=== PATIENT | female | born 1990 | race Caucasian/White ===

== ENCOUNTER → 2016-10-09 21:40 | Observation (INO) ==
[2016-10-09 17:07] LABS: Basophils % 0.3 %; Eosinophils # 0.1 K/mcL (0.0-0.6); Eosinophils % 0.9 %; Hematocrit 38.8 % (35.3-44.9); Hemoglobin 12.9 g/dL (11.5-15.4); Immature Granulocytes % 0.8 % (0-4); Lymphocytes # 1.7 K/mcL (0.6-4.6); Lymphocytes % 12.7 %; Mean Corpuscular HGB Conc 33.2 g/dL (31.6-35.5); Mean Corpuscular Hemoglobin 28.5 pg (28.0-33.3); Mean Corpuscular Volume 85.8 fL (83.0-100.0); Mean Platelet Volume 11.4 fL (9.4-12.4); Monocytes # 1.1 K/mcL (0.0-1.3); Monocytes % 8.1 %; Neutrophils # 10.1 K/mcL (1.6-8.9); Platelet Count 187 K/mcL (140-400); Red Blood Count 4.52 M/mcL (3.82-4.97); Red Cell Distribution Width 12.6 % (11.5-14.5); Segmented Neutrophils % 77.2 %
[2016-10-09 17:09] LABS: Bilirubin,Urine Negative (Negative); Blood,Urine Negative (Negative); Clarity,Urine Cloudy (Clear); Color,Urine Yellow (Yellow); Glucose,Urine (UA) Normal (Normal); Ketones,Urine 40 mg/dL (Negative); Leukocyte Esterase,Urine Moderate (Negative); Nitrite,Urine Negative (Negative); Protein,Urine Negative (Neg-Trace); Specific Gravity,Urine 1.014 (1.010-1.025); Urobilinogen,Urine Normal (Normal)
[2016-10-09 17:10] LABS: Bacteria,Urine Few per hpf (None-Few); Hyaline Casts,Urine None Seen per lpf (None-Few); RBC,Urine 0-3 per hpf (0-3); Squamous Epithelial Cell,Urine Many per lpf (None-Few); WBC,Urine 15-30 per hpf (0-3)
[2016-10-09 17:37] LABS: Alanine Aminotransferase 8 Units/L (0-55); Aspartate Amino Transferase 20 Units/L (5-34); BUN/Creatinine Ratio 9 (6-26); Blood Urea Nitrogen 6 mg/dL (7-20); Lactate Dehydrogenase 274 Units/L (159-327); Uric Acid 3.6 mg/dL (2.6-6.0); eGFR For African Americans > 60 (> 60); eGFR For Non-African Americans > 60 (> 60)
[2016-10-09 17:47] LABS: Protein/Creatinine Ratio,Urine 0.14 mg/mg (0-0.20)
--- NOTE | 2016-10-09 18:20 | OB/GYN History & Physical ---
Date of Encounter: 10/09/16 Time of Encounter: 18:17 Assessment and Plan (1) 32 weeks gestation of Current visit: Yes Status: Acute Pt presents at 32 weeks EGA. No evidence of preeclampsia on labs and bp's are good. Suspect pt is having Migraine. Will give IV hydration and Demerol and Phenergan. Will send home on Zofran once symptoms have improved. (2) Migraine Current visit: Yes Status: Acute Qualifiers: Migraine type: without aura Intractability: not intractable Qualified Code(s): G43.001 - Migraine without aura, not intractable, with status migrainosus (3) contractions Current visit: Yes Status: Acute Will give IVF. Pt having some uc's on monitor which she isn't feeling. Cvx was reassuring by u/s in Dr. Joseph office last week. History of Present Illness Chief complaint: Headache and intractable nausea and vomiting HPI: Ms. Broussard is a 25 year old female female at 32 weeks EGA presents with c/o severe culp that awoke her during her sleep. She also has had progressively worsening nausea and vomiting is No oral liquid or solid intake down today. She does have remote history of migraines early in for which she took she has not been able to keep this down today. She does report some scotomata. She does have a remote history of chronic hypertension and she was followed for -induced hypertension with last . This she has had recently elevated blood pressures and turned in a 24-hour urine yesterday. She has a long history of mild right upper quadrant pain off and on and had this during last . She has no edema. She reports good movement and denies regular contractions and has no bleeding or leakage of fluid. Past Med Surg Social Fam HX - Past Medical History Source: patient Medical history: no medical history Psychiatric history: anxiety, depression - Social History Smoking Status: Never smoker Smokeless Tobacco Status: No Alcohol use: unknown Drug use: none Obstetrical History - Pregnancies : 2 Medications and Allergies Wellbutrin 150 mg PO DAILY 02/09/16 [History] Fioricet 1 tab PO Q6H 10/09/16 [History] Allergies No Known Allergies Allergy (Verified 02/09/16 14:44) Review of System OB All systems PM: reviewed and no additional remarkable complaints except as stated Exam - Constitutional Constitutional: well developed, moderate distress - HEENT HEENT: EOMI, PERRL - Neck Neck exam: full ROM - Lungs Respiratory exam: CTAB - Cardiovascular Cardiovascular exam: RRR - Abdomen Abdomen: Present: gravid - Extremities Extremities exam: full ROM Deep Tendon Reflex Grade: 2+ Normal - Vagina Vagina: Present: normal moisture - Uterus Uterus exam: Present: normal size Results Result Diagrams: 10/09/16 16:55 10/09/16 16:55 Abnormal lab results WBC 13.0 K/mcL (4.3-11.1) H 10/09/16 16:55 Neutrophils # 10.1 K/mcL (1.6-8.9) H 10/09/16 16:55 BUN 6 mg/dL (7-20) L 10/09/16 16:55 Urine Clarity Cloudy (Clear) A 10/09/16 16:55 Urine Ketones 40 mg/dL (Negative) H 10/09/16 16:55 Ur Leukocyte Esterase Moderate (Negative) H 10/09/16 16:55 Urine Microscopic WBC 15-30 per hpf (0-3) H 10/09/16 16:55 Ur Squamous Epith Cells Many per lpf (None-Few) H 10/09/16 16:55 Ur Culture Indicated? YES (NO) A 10/09/16 16:55 All other labs normal. - VTE Reasons for not Prescribing Prophylaxis: Treatment not Indicated - Low risk for VTE
--- NOTE | 2016-10-09 18:41 | Discharge Summary ---
Outpatient Proc Discharge Plan - Plan Prescriptions: Ondansetron ODT [Zofran ODT] 4 mg SL Q4HR PRN #30 tab.rapdis PRN Reason: Nausea Home Medications: Wellbutrin 150 mg PO DAILY 02/09/16 [History] Fioricet 1 tab PO Q6H 10/09/16 [History] Ondansetron ODT [Zofran ODT] 4 mg SL Q4HR PRN #30 tab.rapdis 10/09/16 [Rx]
[~2016-10-09 21:40] MED LIST: *HR* Meperidine 25 MG/ML SYRINGE IVP PRN; *HR* Promethazine 25 MG/ML VIAL IVP ONE; Ondansetron 4 MG/2 ML VIAL IVP PRN; Ringers Solution, Lactated 1,000 ML IVC SCH
== END | disposition home or self-care (01) ==
LOC: 1NENULAB
PROVIDERS: ADMIT Obstetrics & Gynecology; ATTEND Obstetrics & Gynecology

== ENCOUNTER → 2016-11-08 21:19 | Observation (INO) ==
--- NOTE | 2016-11-08 20:02 | OB/GYN Progress Note ---
Date of Encounter: 11/08/16 Time of Encounter: 19:57 - Assessment and Plan (1) 35 weeks gestation of Current Visit: Yes Status: Acute Subjective - Subjective Principal diagnosis: contractions every 1-2 minutes Interval history: 25 year old female, 35 weeks and 4 days , [id number] whose OBGYN is Dr. 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 Patient denies SROM. She states that she has had some elevated blood pressures btu is not currently on medications for this . Patient states that she maintain proper hydration and denies any UTI symptoms at this time. Patient states that she is unaware of her GBS status as she most recently had it evaluated but does not have the results back yet. She states that she is experiencing nausea and vomitted x1 about after being triaged at L&D. Her only other medication she is on is Wellbutrin. Her last check was last week and at that time she was 1cm dilated and 80% effaced. Antepartum ROS: movement normal, contractions, no loss of fluid, no vaginal bleeding Objective - Exam FHR: auscultation normal Abdomen: Present: normal appearance, soft, gravid Uterus: Present: normal, firm Cervical dilation: 2cm Cervix effacement: 80% Comments: checked was performed by nursing staff - Allied health notes Allied health notes reviewed: nursing
[2016-11-08 20:11] VITALS: BP 154/94
[2016-11-08 20:43] LABS: Bilirubin,Urine Negative (Negative); Blood,Urine Negative (Negative); Clarity,Urine Clear (Clear); Color,Urine Yellow (Yellow); Glucose,Urine (UA) Normal (Normal); Ketones,Urine Trace mg/dL (Negative); Leukocyte Esterase,Urine Moderate (Negative); Nitrite,Urine Negative (Negative); PH,Urine 6.5 pH Units (5.0-8.0); Protein,Urine Negative (Neg-Trace); Specific Gravity,Urine 1.006 (1.010-1.025); Urobilinogen,Urine Normal (Normal)
[2016-11-08 20:45] LABS: Bacteria,Urine None Seen per hpf (None-Few); Hyaline Casts,Urine None Seen per lpf (None-Few); RBC,Urine 0-3 per hpf (0-3); Squamous Epithelial Cell,Urine Many per lpf (None-Few)
== END | disposition home or self-care (01) ==
LOC: 1NENULAB

== ENCOUNTER 2017-03-10 07:58 | Inpatient (IN) ==
[2017-03-10] MEDS ORDERED: 0.9 % Sodium Chloride 1,000 ML IVC ONE ×2 (08:28→10:11)
--- NOTE | 2017-03-10 09:03 | Emergency Department Note ---
Disposition Clinical Impression: Skin lesion Sepsis Qualifiers: Sepsis type: sepsis due to unspecified organism Qualified Code(s): A41.9 - Sepsis, unspecified organism Disposition: Admitted As Inpatient Condition: Good General Adult HPI - General Chief complaint: ED Fever Stated complaint: fever, neck pain Time Seen by Provider: 03/10/17 08:06 Source: patient Limitations: no limitations Nursing Notes Reviewed: Yes Vital Signs Reviewed: Yes - History of Present Illness HPI Narrative: 3 months . Patient is here for the evaluation of multiple complaints. Patient states that she has these lumps in her arms and her groin that decreased her overall use of the extremities secondary to pain. This this started out on Wednesday with small lesion that has significantly increased in size. Patient has now developed fevers as well as myalgias. Patient has also had a rule canker sores in her mouth. Patient has not been on any new medications. No history of IV drug use. No history of immunosuppression. Patient has been outside and this had some mosquito bites but denies any tick bites or other rashes. Pain Scale: 3 - Related Data Home Medications Medication Instructions Recorded Confirmed BuPROPion XL (24 HR) [Wellbutrin 150 mg PO DAILY 02/09/16 03/10/17 XL] Rizatriptan Benzoate [Maxalt] 10 mg PO DAILY PRN 10/09/16 03/10/17 Ethinyl Estradiol/Drospirenone 1 tab PO DAILY 03/10/17 03/10/17 [Debbie 28 Tablet] Topiramate [Topamax] 50 mg PO DAILY 03/10/17 03/10/17 Allergies Allergy/AdvReac Type Severity Reaction Status Date / Time No Known Allergies Allergy Verified 03/10/17 08:05 Review of Systems: CONSTITUTIONAL: Fever, chills, weakness, fatigue HEENT: Eyes: No visual changes. Ears, Nose, Throat: No hearing loss, difficulty talking or unable to swallow. SKIN: Multiple skin lesions in the axilla and groin CARDIOVASCULAR: No chest pain, chest pressure or chest discomfort. No palpitations or edema. RESPIRATORY: No shortness of breath, cough or sputum. GASTROINTESTINAL: No anorexia, nausea, vomiting or diarrhea. No abdominal pain or blood. GENITOURINARY: No burning on urination or hematuria. NEUROLOGICAL: No headache, dizziness, syncope, paralysis, ataxia, numbness or tingling in the extremities. No change in bowel or bladder control. MUSCULOSKELETAL: No muscle pain, back pain, joint pain or stiffness. Past Medical History - Past Medical History Medical history: Reports: migraine Surgical history: Reports: no surgical history Psychiatric history: Reports: anxiety, depression - Social History Smoking Status: Never smoker Smokeless Tobacco Status: No Alcohol use: Reports: unknown Drug use: Reports: none Physical Exam General appearance: NAD, conversant Eyes: anicteric sclerae, moist conjunctivae; PERRL HENT: Atraumatic; oropharynx clear with moist mucous membranes and no mucosal ulcerations Neck: Normal inspection; Trachea midline; FROM, supple Lungs: CTA, with normal respiratory effort and no intercostal retractions CV: RRR, no MRGs Abdomen: Soft, non-tender; no rebound or gaurding Extremities: No peripheral edema or extremity lymphadenopathy Skin: Multiple lesions in the axilla and groin area concerning for possible abscesses. The right left axilla have several2 cm x 1 cm leions that are mildly fluctuant in nature. The pelvic external exam shows 2 follicular lesions with one that is crusting. Psych: Appropriate mood and affect Neuro: alert and oriented to person, place and time - General Limitations: no limitations General appearance: alert, in no apparent distress Course - Reevaluation(s) Reevaluation #1: Patient continues to be tachycardic after 1 L of fluids. Patient will receive more fluids as well as vancomycin. Patient did give proximally 3 months ago and falls within a 90 day timeframe. Concern for even hospital acquired MRSA. At this point the patient has known lesions, elevated white count, and unresolved tachycardia. The patient will need further evaluation and monitoring in hospital. - Consultations Consultation #1: Discussed with Dr. Dixon. Pt accepted. Vital Signs Temperature 98.2 F 03/10/17 08:01 Pulse Rate 115 03/10/17 08:01 Respiratory Rate 18 03/10/17 08:01 Blood Pressure 138/85 03/10/17 08:01 O2 Sat by Pulse Oximetry 99 03/10/17 08:01 Temperature 101.2 F H 03/10/17 13:12 Pulse Rate 113 03/10/17 12:50 Respiratory Rate 16 03/10/17 12:58 Blood Pressure 115/70 03/10/17 12:58 O2 Sat by Pulse Oximetry 98 03/10/17 12:50 Oxygen Delivery Oxygen Delivery Room Air Medical Decision Making - Medical Records Medical records reviewed: Yes I reviewed the patient's medical records. - Lab Data Lab results reviewed: Yes I reviewed the patient's lab results. Result diagrams: 03/10/17 08:40 03/10/17 08:40 Lab Results 03/10/17 03/10/17 03/10/17 Range/Units 08:40 08:40 10:38 WBC 13.8 H (4.3-11.1) K/mcL RBC 4.57 (3.82-4.97) M/mcL Hgb 12.8 (11.5-15.4) g/dL Hct 38.7 (35.3-44.9) % MCV 84.7 (83.0-100.0) fL MCH 28.0 (28.0-33.3) pg MCHC 33.1 (31.6-35.5) g/dL RDW 13.7 (11.5-14.5) % Plt Count 196 (140-400) K/mcL MPV 11.0 (9.4-12.4) fL Immature Gran % 0.6 (0-4) % Seg Neutrophils % 87.9 % Lymphocytes % 4.3 % Monocytes % 7.0 % Eosinophils % 0.1 % Basophils % 0.1 % Neutrophils # 12.1 H (1.6-8.9) K/mcL Lymphocytes # 0.6 (0.6-4.6) K/mcL Monocytes # 1.0 (0.0-1.3) K/mcL Eosinophils # 0.0 (0.0-0.6) K/mcL Basophils # 0.0 (0.0-0.2) K/mcL PT (9.4-12.1) Seconds INR APTT (26.0-36.0) Seconds Sodium 139 (136-145) mEq/L Potassium 3.2 L (3.5-4.5) mEq/L Chloride 109 (98-109) mEq/L Carbon Dioxide 21 (19-29) mEq/L BUN 8 (7-20) mg/dL Creatinine 0.81 (0.57-1.11) mg/dL Est GFR ( Amer) > 60 (> 60) Est GFR (Non-Af Amer) > 60 (> 60) BUN/Creatinine Ratio 10 (6-26) Glucose 106 H (70-99) mg/dL Calculated Osmolality 287 (280-300) Lactic Acid 0.7 (0.5-2.2) mmol/L Calcium 9.4 (8.6-10.8) mg/dL 03/10/17 Range/Units 11:51 WBC (4.3-11.1) K/mcL RBC (3.82-4.97) M/mcL Hgb (11.5-15.4) g/dL Hct (35.3-44.9) % MCV (83.0-100.0) fL MCH (28.0-33.3) pg MCHC (31.6-35.5) g/dL RDW (11.5-14.5) % Plt Count (140-400) K/mcL MPV (9.4-12.4) fL Immature Gran % (0-4) % Seg Neutrophils % % Lymphocytes % % Monocytes % % Eosinophils % % Basophils % % Neutrophils # (1.6-8.9) K/mcL Lymphocytes # (0.6-4.6) K/mcL Monocytes # (0.0-1.3) K/mcL Eosinophils # (0.0-0.6) K/mcL Basophils # (0.0-0.2) K/mcL PT 12.4 H (9.4-12.1) Seconds INR 1.1 APTT 25.1 L (26.0-36.0) Seconds Sodium (136-145) mEq/L Potassium (3.5-4.5) mEq/L Chloride (98-109) mEq/L Carbon Dioxide (19-29) mEq/L BUN (7-20) mg/dL Creatinine (0.57-1.11) mg/dL Est GFR ( Amer) (> 60) Est GFR (Non-Af Amer) (> 60) BUN/Creatinine Ratio (6-26) Glucose (70-99) mg/dL Calculated Osmolality (280-300) Lactic Acid (0.5-2.2) mmol/L Calcium (8.6-10.8) mg/dL Attestation Statement - Attestation Attestation: I examined this patient and my medical decision-making was reviewed with the Resident Physician. I agree with the documented findings, disposition and treatment plan as described except to the extent set forth below. Patient to the emergency department with a chief complaint of bumps in her axilla. Onset several days ago. Fever up to 102.7. Response to Tylenol but then comes back. Patient thinks maybe related to a razor. On exam she is in no distress. She has multiple small abscesses and axilla. They are tender. Multiple small follicles in her groin as well. One small area on the inferior labia majora that is drained. One small abscess above it that is firm. Plan. Patient with tachycardia and elevated white blood cell count. Subjective fever. She meets sepsis criteria. She started on broad-spectrum antibiotic. 30 minutes of critical care exclusive of separately billable procedures.
[2017-03-10 09:16] LABS: Basophils % 0.1 %; Eosinophils % 0.1 %; Hematocrit 38.7 % (35.3-44.9); Hemoglobin 12.8 g/dL (11.5-15.4); Immature Granulocytes % 0.6 % (0-4); Lymphocytes # 0.6 K/mcL (0.6-4.6); Lymphocytes % 4.3 %; Mean Corpuscular HGB Conc 33.1 g/dL (31.6-35.5); Mean Corpuscular Volume 84.7 fL (83.0-100.0); Neutrophils # 12.1 K/mcL (1.6-8.9); Platelet Count 196 K/mcL (140-400); Red Blood Count 4.57 M/mcL (3.82-4.97); Red Cell Distribution Width 13.7 % (11.5-14.5); Segmented Neutrophils % 87.9 %
[2017-03-10 09:28] LABS: BUN/Creatinine Ratio 10 (6-26); Blood Urea Nitrogen 8 mg/dL (7-20); Calcium 9.4 mg/dL (8.6-10.8); Carbon Dioxide 21 mEq/L (19-29); Chloride 109 mEq/L (98-109); Glucose 106 mg/dL (70-99); Osmolality,Calculated 287 (280-300); Potassium 3.2 mEq/L (3.5-4.5); Sodium 139 mEq/L (136-145); eGFR For African Americans > 60 (> 60); eGFR For Non-African Americans > 60 (> 60)
[2017-03-10] MEDS ORDERED: Vancomycin 1,000 MG in D5% in Water 250 ML IVPB ONE (10:11)
[2017-03-10] MEDS ORDERED: Naloxone 0.4 MG/ML INJ IVP PRN (11:36)
[2017-03-10] MEDS ORDERED: Ondansetron 4 MG/2 ML VIAL IVP PRN (11:36)
[2017-03-10] MEDS ORDERED: Ibuprofen 600 MG TABLET PO PRN (11:55)
[2017-03-10] MEDS ORDERED: 0.9 % Sodium Chloride 1,000 ML IVC SCH (12:00)
[2017-03-10] MEDS ORDERED: Ketorolac 30 MG/ML VIAL IVP ONE (12:02)
--- NOTE | 2017-03-10 12:06 | Internal Med History&Physical ---
<Lance Bradford - Last Filed: 03/10/17 13:34> Date of Encounter: 03/10/17 Time of Encounter: 10:30 Assessment and Plan (1) Sepsis Current visit: Yes Status: Acute Patient presents to the ED meeting sepsis criteria based on WBC of 13.8, HR of 124, and temperature of 101.2. IV vancomycin ordered and started in the ED along with two boluses of IV fluids. IV vancomycin to be continued with the addition of IV Zosyn for infection coverage. Blood cultures x2 ordered, urine culture ordered, and multiple wound cultures ordered. Stat and timed lactic acids ordered as well as INR and APTT. Infectious Disease consult ordered and discussed with Munira. IV fluids to be continued. Follow-up labs ordered. Patient placed on continuous cardiac telemetry due to current tachycardia. Patient to be monitored closely for increasing signs of infection. Qualifiers: Sepsis type: sepsis due to unspecified organism Qualified Code(s): A41.9 - Sepsis, unspecified organism (2) Groin cyst Current visit: Yes Status: Acute Patient presents with sores in the groin area as well as axilla that she states began as one sore in the left axilla on 03/08/17 and became multiple sores in the left and right axilla, back of the neck, as well as the groin area. Sores range in size from the size of a pencil eraser to the size of a quarter and are raised, edematous, and erythematous. CT scan of the axilla sores did not show fluid to culture, however patient states that one of the groin sores burst open and is now scabbed. Wound cultures of the neck and groin ordered. Infectious Disease consult ordered and discussed with Munira. (3) Mouth sores Current visit: Yes Status: Acute Patient presents with several sores in the mouth with white centers and red edges on the inside left lower lip, under the right back tongue, as well as in the back of the throat. Patient reports the sores are painful and make swallowing difficult. Wound culture ordered of lip sore. Infectious disease consult ordered and discussed with Munira. (4) Fever Current visit: Yes Status: Acute Patient presents with reported fever at home of 102.7F prior to coming to ED. Patient's temperature in ED was 99.2 orally. Patient felt warmer during examination so rectal temperature was obtained which was 101.2. Tylenol 650 mg Q6 PRN ordered to e alternated with Motrin 600 mg TID for fever control. Will continue to monitor patient's vital signs. Qualifiers: Fever type: due to other condition Qualified Code(s): R50.81 - Fever presenting with conditions classified elsewhere (5) Nausea Current visit: Yes Status: Acute Patient reports acute nausea with her current symptoms but denies vomiting. IV Zofran ordered PRN. IVP Protonix 40 mg daily ordered. (6) Migraine Current visit: Yes Status: Chronic Patient presents with a history of migraine headaches. Will continue patient's Maxalt. Qualifiers: Migraine type: without aura Intractability: not intractable Qualified Code(s): G43.009 - Migraine without aura, not intractable, without status migrainosus (7) DVT prophylaxis Current visit: Yes Status: Acute Patient to be placed on DVT prophylaxis due to admission protocol and current sepsis status. Heparin 5,000 units SQ Q8 ordered. Internal Medicine - H&P: HPI Chief complaint: Fever, Sores under axilla/groin/mouth Admitted From: Emergency Dept Plans for Post Hospital Care: Home History of present illness: Mrs. Broussard is a 26 year old female who presents from the ED with chief complaint of fever since Wednesday night (03/08/17) and painful sores that began in the left axilla area and increased to multiple sores in the left and right axilla as well as the groin. Patient also reports sores inside her mouth in the lower lip, under the right back of her tongue, and her throat which she states makes swallowing extremely difficult. Patient reports nausea, chills, and fatigue as well. She denies any use of new medications, IV drug use, or history of immunosuppression. She also denies any chest pain, SOB, cough, sputum production, vomiting, diarrhea, constipation, headache, pre-syncope or syncope. Patient is 3 months post-. She also denies any recent travel outside the country or tick bites. Patient is at high risk as she currently meets sepsis criteria based on her current WBC of 13.8, HR of 124, and temperature of 101.2 rectally. Patient to be placed as inpatient status with sepsis protocol being followed: continuation of IV fluids, IV vancomycin and IV Zosyn, stat and timed lactic acids, stat INR and APTT, blood cultures x2, wound cultures (from mouth, neck, and groin), urine culture, and alternating Tylenol and Motrin for fever control. Patient to be monitored closely for increasing signs of infection through follow-up labs. Time spent with patient > 40 minutes. Past Med Surg Social Fam HX - Past Medical History Source: patient Medical history: migraine Psychiatric history: anxiety, depression - Past Surgical History Surgical History: no surgical history - Social History Smoking Status: Never smoker Smokeless Tobacco Status: No Alcohol use: unknown Drug use: none Occupational status: employed Current living situation: Home, With Family Activity Level: Independent ambulation Recent Out of Country Travel Within the Last 8 Weeks: No Exposure or Possible Exposure to Illness During Travel: No - Family History Mother Race: Family Member Ethnicity: Non- Living Status: Still Living Hx Family Cancer: Yes (Colon, uterine, melanoma) Father Race: Family Member Ethnicity: Non- Living Status: Still Living Hx Family Cardiac Disorders: Yes (HD) Brother Race: Family Member Ethnicity: Non- Living Status: Still Living Hx Family Medical Disorders: No Internal Medicine - H&P: Meds BuPROPion XL (24 HR) [Wellbutrin XL] 150 mg PO DAILY 02/09/16 [History] Rizatriptan Benzoate [Maxalt] 10 mg PO DAILY PRN 10/09/16 [History] Ethinyl Estradiol/Drospirenone [Debbie 28 Tablet] 1 tab PO DAILY 03/10/17 [History] Topiramate [Topamax] 50 mg PO DAILY 03/10/17 [History] Allergies No Known Allergies Allergy (Verified 03/10/17 08:05) All Systems PM: A 10-system review of systems was performed and is negative for pertinent findings except as documented above in the HPI. - Constitutional Constitutional: as per HPI, chills, fatigue, fever(s), weakness - EENT Eyes: no change in vision, no discharge, no pain, no photophobia Ears: no ear discharge, no ear pain, no tinnitus Nose, mouth and throat: as per HPI, mouth lesions, sore throat, no dysphagia, no nasal discharge, no neck pain - Breasts Breasts: as per HPI - Cardiovascular Cardiovascular ROS IM: as per HPI, other (Tachycardia) - Respiratory Respiratory: no cough, no dyspnea, no wheezing, no excessive phlegm production - Gastrointestinal Gastrointestinal: as per HPI, nausea, no abdominal pain, no diarrhea, no hematemesis, no hematochezia, no melena, no vomiting - Genitourinary Genitourinary: as per HPI, other (Sores around labia and suprapubic area) Menstruation: as per HPI - Musculoskeletal Musculoskeletal ROS IM: as per HPI, myalgias - Integumentary Integumentary IM: as per HPI, sores (Multiple raised sores under bilateral axillary area and groin area) - Neurological Neurological ROS: no confusion, no convulsions, no focal weakness, no numbness, no tingling, no tremor(s) - Psychiatric Psychiatric: as per HPI - Endocrine Endocrine IM: as per HPI - Hematologic/Lymphatic Hematologic/Lymphatic: no easy bruising - Allergic/Immunologic Allergic/Immunologic: as per HPI - Constitutional Vitals: Temp Pulse Resp BP Pulse Ox 99.2 F 110 16 116/80 98 03/10/17 11:11 03/10/17 10:00 03/10/17 10:00 03/10/17 10:00 03/10/17 10:00 General appearance: Present: cooperative, mild distress, A&O X 3, pleasant, answers questions appropriately - Head Head exam: Present: atraumatic, normocephalic - Eye Eye exam: Present: PERRL, conjuntiva pink, sclera anicteric Pupils: Present: PERRL - ENT ENT exam: Present: normal external ear exam Additional comments: Patient has sores present in the left lower inside lip, right side underneath the tongue at the back, roof of mouth, and in the back of the throat. - Neck Neck exam general surgery: Present: lymphadenopathy, supple, trachea midline - Respiratory Respiratory exam: Present: CTAB. Absent: accessory muscle use, rales, rhonchi, wheezes - Cardiovascular Cardiovascular exam: Present: RRR, +S1, +S2. Absent: diastolic murmur, gallop, rubs, systolic murmur - GI/Abdominal GI/Abdominal exam: Present: normal bowel sounds, soft, no peritoneal signs. Absent: distended, tenderness - Rectal Rectal exam: Present: deferred - External exam: Present: lesions (Around genital area) - Extremities Exam Extremities exam: Present: warm, radial pulses palpable and symetrical. Absent : calf tenderness, cyanotic, pedal edema Additional comments: Patient has multiple raised sores bilaterally in the axillary area that are edematous, erythematous, and painful. - Back Exam Back exam: Present: normal inspection - Neurological Exam Neurological exam: Present: CN II-XII intact, oriented X3, no focal deficits. Absent: pronater drift, facial droop, speech deficit - Psychiatric Psychiatric exam: Present: anxious - Skin Skin exam: Present: dry, intact Internal Med - H&P Results - Labs CBC & Chem 7: 03/10/17 08:40 03/10/17 08:40 Labs: Short CBC 03/10/17 Range/Units 08:40 WBC 13.8 H (4.3-11.1) K/mcL Hgb 12.8 (11.5-15.4) g/dL Hct 38.7 (35.3-44.9) % Plt Count 196 (140-400) K/mcL Neutrophils # 12.1 H (1.6-8.9) K/mcL BMP 03/10/17 08:40 Sodium 139 Potassium 3.2 L Chloride 109 Carbon Dioxide 21 BUN 8 Creatinine 0.81 Glucose 106 H Calcium 9.4 - EKG Data EKG shows normal: sinus rhythm Rate: tachycardia - EKG Data Prior EKG available for review: yes When compared to previous EKG: there are significant changes EKG comments: 03/10/17 12:26 EKG dated 11/28/16 shows sinus arrhythmia and normal ECG. EKG dated 03/10/17 shows sinus tachycardia with ST deviation and moderate T- wave abnormality (consider anterolateral ischemia). <Edy Dixon - Last Filed: 03/10/17 19:41> Date of Encounter: 03/10/17 Internal Medicine - H&P: HPI History of present illness: Ms. Broussard is a 26 year old female All Systems PM: A 10-system review of systems was performed and is negative for pertinent findings except as documented above in the HPI. - Constitutional Vitals: Temp Pulse Resp BP Pulse Ox 99.1 F 109 16 123/79 100 03/10/17 16:17 03/10/17 16:17 03/10/17 16:17 03/10/17 16:17 03/10/17 16:17 Internal Med - H&P Results - Labs CBC & Chem 7: 03/10/17 08:40 03/10/17 08:40 Labs: Urine 03/10/17 Range/Units 15:00 Urine Color Dark Yellow (Yellow) Urine Clarity Cloudy A (Clear) Urine pH 6.0 (5.0-8.0) pH Units Ur Specific [place] > 1.030 H (1.010-1.025) Urine Protein 30 H (Neg-Trace) mg/dL Urine Glucose (UA) Normal (Normal) mg/dL - Attending Attestation I have seen and examined pt. I discussed with COMPRESSOR HOUSE OPERATOR regarding the management plan. I agree with the documentation.
[2017-03-10 12:10] LABS: INR 1.1; Prothrombin Time 12.4 Seconds (9.4-12.1)
[2017-03-10 12:13] LABS: Activated Partial Thrombo Time 25.1 Seconds (26.0-36.0)
[2017-03-10] MEDS ORDERED: (Rizatriptan Benzoate [Maxalt] 10 MG) PO PRN (12:31)
[2017-03-10] MEDS: Pantoprazole 40 MG VIAL IVP SCH (13:55)
[2017-03-10 15:19] LABS: Bilirubin,Urine Small (Negative); Blood,Urine Negative (Negative); Clarity,Urine Cloudy (Clear); Color,Urine Dark Yellow (Yellow); Glucose,Urine (UA) Normal (Normal); Ketones,Urine 80 mg/dL (Negative); Leukocyte Esterase,Urine Small (Negative); Nitrite,Urine Negative (Negative); Protein,Urine 30 mg/dL (Neg-Trace); Specific Gravity,Urine > 1.030 (1.010-1.025); Urobilinogen,Urine Normal (Normal)
[2017-03-10 15:21] LABS: Bacteria,Urine None Seen per hpf (None-Few); Hyaline Casts,Urine Few per lpf (None-Few); Squamous Epithelial Cell,Urine Many per lpf (None-Few); WBC,Urine 15-30 per hpf (0-3)
--- NOTE | 2017-03-10 15:40 | Infectious Disease Consult ---
Date of Encounter: 03/10/17 Time of Encounter: 15:33 Assessment and Plan (1) Sepsis Status: Acute Assessment and plan: Patient meets sepsis criteria with fever, tachycardia and leukocytosis Etiology is unclear at this time. Patient with Axillary lymphadenopathy, oral ulcerations, joint pain and fever. Differential would include infectious causes such as viral ( HIV, parvo, Coxsackie, etc. ), Bacterial, or possibly non infectious ( Bechets, autoimmune ). If work up is negative my even consider lymphoproliferative disorders. Patient is currently hemodynamically stable. Lactic acid is 0.6. UA pending but denies lower urinary tract symptoms. Recommendations: Continue Vancomycin and Zosyn. We will reassess in the AM and may consider discontinuing if cultures are negative. We will follow up with blood and wound cultures. We will check for viral infections, RPR, and inflammatory markers. We will consult Dermatolgy as well to evaluate the patient. Additionally may eventually need skin biopsy. Continue to monitor for drug titers. continue to monitor renal function. Thank you for the consultation and the opportunity to participate in this patience care. Qualifiers: Sepsis type: sepsis due to unspecified organism Qualified Code(s): A41.9 - Sepsis, unspecified organism (2) Axillary lymphadenopathy Status: Acute Assessment and plan: Etiology unclear at this time. We will get a CT of the chest with contrast to evaluate for possible underlying abscess and to see if there is any intrathoracic lymphadenopathy as well. (3) Ulceration, oral mucosa Status: Acute Assessment and plan: as stated above. (4) History of recent childbirth Status: Acute Assessment and plan: patient had at [facility] 3 months ago. Denies any complication during that hospitalization. She denies currently breast feeding. Infectious Disease HPI - Data of Consult Patient: new to practice Consult date: 03/10/17 Requesting Physician: Mj Hanna MD Primary Care Provider: Dinorah Mesa - Consult Narrative Reason for consult: Sepsis, Axillary Lymphadenopathy, oral ulcers. History of present illness: Ms. Broussard is a 26 year old female who was admitted to [facility] on 03/10/17 for Sepsis, bilateral axillary lymphadenopathy. Infectious disease is consulted on 03/10/17 for Sepsis, Axillary Lymphadenopathy , oral and genital lesions. Ms. Broussard is a 26 y.o. female past medical history anxiety, depression, and migrines, who recently had a Spontaneous vaginal delivery at [facility] 3 months ago. This was her second living child. She is currently not breast feeding. She denies any complications with the delivery.She has not had any medical procedures or hospitalizations since that time. Since admission She has met SIRS criteria of Fever with Tmax of 101.2 rectal, tachycardia, and leukocytosis. She was started on Vancomycin and Zosyn and has been given 2Liters of Normal saline. Blood and wound cultures were sent. Herpes culutures are to be collected from oral and genital lesions and are awaiting tubes from lab per staff appraiser. She has been hemodynamically stable since admission. Today Ms. Broussard states that she began to have symptoms are Wednesday when she noted a painful bump under her left axilla. She later developed more and also in the right axilla as well. She states she also had a lesion on her Labia that ruptured on its own and was bloody. She admits to fevers as high as 102.7 at home, chills, rigors and diaphoresis.She also complains of painful oral lesions. She states she has had them in the past but not this many before. She also complains of "bumps" on the right side of her neck. She complains of pain in her ankles knees and hips. She attributes this to standing at work. She states that she did shave her axilla and groin prior to her symptoms but dose not think this is related because she used a brand new razor and did not cut herself. She has a three year old and a 3 month old son. Both of which have recently had upper respiratory symptoms. She states that her mother in law recently returned from a trip to [place] but did not know which country. She denies any cough, wheeze, dyspnea, hemoptysis, rhinnorhea, sinus pressure, Dysuria, diarrhea. She has no further complaints or concerns at this time. CC: Mj Hanna MD Past Med Surg Social Fam HX - Past Medical History Medical history: migraine Psychiatric history: anxiety, depression - Past Surgical History Surgical History: no surgical history, other (bilateral tympanostomy as a child) - Social History Smoking Status: Never smoker Smokeless Tobacco Status: No Alcohol use: unknown Drug use: none - Family History Mother Race: Family Member Ethnicity: Non- Living Status: Still Living Hx Family Cardiac Disorders: Yes Hx Family Respiratory Disorders: No Hx Family Cancer: Yes (Colon, uterine, melanoma) Hx Family GI Disorders: No Hx Family Endocrine Disorder: No Hx Family Neuromuscular Disorders: No Hx Family Neurologic Disorders: No Hx Family HEENT Disorders: No Hx Family Autoimmune Disorders: No Father Race: Family Member Ethnicity: Non- Living Status: Still Living Hx Family Cardiac Disorders: Yes (HD) Brother Race: Family Member Ethnicity: Non- Living Status: Still Living Hx Family Medical Disorders: No Infectious Disease-CN:Meds BuPROPion XL (24 HR) [Wellbutrin XL] 150 mg PO DAILY 02/09/16 [History] Rizatriptan Benzoate [Maxalt] 10 mg PO DAILY PRN 10/09/16 [History] Ethinyl Estradiol/Drospirenone [Debbie 28 Tablet] 1 tab PO DAILY 03/10/17 [History] Topiramate [Topamax] 50 mg PO DAILY 03/10/17 [History] Allergies No Known Allergies Allergy (Verified 03/10/17 08:05) Review of systems: Constitutional: Admits to fevers, chills, malaise, rigors. Denies any unintentional weight loss. HEENT: She denies headache but does state she has a history of migraines. She denies any recent visual changes, she denies any painful irritations of the eye or redness of the eye. She denies rhinorrhea, sinus pressure, change in hearing. She does admit painful oral ulcers. Denies any neck masses. Heart: She denies any chest pain, palpitations, syncopal be, presyncope. Lungs: She denies any dyspnea, cough, wheeze, hemoptysis. GI: She denies any nausea, vomiting, diarrhea, constipation, abdominal pain. : She denies any dysuria, hematuria, change in frequency of urination, vaginal discharge. Musculoskeletal: She does admit to a new aches and pains in her bilateral ankles hips and knees. She denies any erythema or swelling in his joints. Heme: She does admit to bilateral axillary lymphadenopathy. Denies any easy bleeding or bruising. Endocrine: She denies any polyuria or polydipsia. Integument: As per history of present illness. Travel: She is in no travel outside of the state in the last 6 months. No recent foreign travel as well. However her [id number]-ant did just recently returned from [place] it is unknown what country she visited at this time. Animal contacts: She does have a dog that lives indoors with her. She denies any recent scratches or bites. Sick contacts: Her 2 sons have had upper respiratory symptoms. Her mother also recently had bronchitis. She also works at a halfway with the [employer] but does not have any close contact with them. 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 She has never had any exposures during her occupation. Diet: No recent changes in diet. No ingestion of raw or undercooked food. Insect exposure: No recent tick or mosquito bites that she is aware of. sexual history: She states she has been in a monogomous relationship with her boyfriend of 6 years. She has not been sexually active since the of her child 3 months ago. Exam - Constitutional Vitals: Temp Pulse Resp BP Pulse Ox 100.1 F H 110 16 119/77 99 03/10/17 13:35 03/10/17 13:35 03/10/17 13:35 03/10/17 13:35 03/10/17 13:35 Exam: General: This is a very pleasant well-developed well-nourished 18-year-old female who is lying in bed and appears to be comfortable and in no acute distress at this time. HEENT: The head is normocephalic and atraumatic. Normal external appearance of the ears nose and eyes. She does wear glasses. Dentition is intact. The mucous membranes are moist. She does have several ulcerations underneath the tongue on the buccal surface and underneath and the lower lip. Does not have any ulcerations at the back of the throat. The posterior pharynx is pink without cobblestoning or exudate. Uvula is midline. There is no cervical submandibular or supraclavicular lymphadenopathy that is palpable on my exam. She does have some lesions on the skin on the right side of the neck appear to be small abscesses. The neck is supple without mass or thyromegaly. The trachea is midline. Heart: Mildly tachycardic with regular rhythm. She does have a very mild almost imperceptible systolic murmur that is a 1 out of 6 that is heard best at the right upper sternal border. No JVD. Normal capillary refill. Lungs: Normal effort of breathing clear to auscultation bilaterally. Line abdomen: The abdomen is soft, nondistended, nontender to palpation. Bowel sounds are positive in all quadrants. No tenderness to palpation. Musculoskeletal: Grossly normal for age no gross form is noted. No swelling erythema or tenderness of the ankles or knees bilaterally. Extremities: There is no clubbing, cyanosis or edema. Integument: She does have some erythematous raised areas in the axilla bilaterally. Appears to be possibly lymphadenopathy. It is painful to palpation. She does have some small areas of the right-sided neck appear to be very tiny abscesses. Additionally she has one small lesion on the right posterior labia that is approximately 3 mm in diameter. She also has an area of erythema that is approximately 8 mm in diameter this round palpable feels indurated as well possibly early erythema nodosum. Specifically I did not see any embolic or immunologic phenomena such as splinter hemorrhages, also nose, Janeway lesions. Psych: Patient is a orientated, normal affect, cooperates fully with both history and physical. Infectious Disease CN: Results - Labs CBC & Chem 7: 03/11/17 04:47 03/11/17 04:47 Serology: Serology 03/10/17 03/10/17 Range/Units 15:00 15:00 Urine Color Dark Yellow (Yellow) Urine Clarity Cloudy A (Clear) Urine pH 6.0 (5.0-8.0) pH Units Ur Specific [place] > 1.030 H (1.010-1.025) Urine Protein 30 H (Neg-Trace) mg/dL Urine Glucose (UA) Normal (Normal) mg/dL Urine Ketones 80 H (Negative) mg/dL Urine Blood Negative (Negative) Urine Nitrite Negative (Negative) Urine Bilirubin Small H (Negative) Urine Urobilinogen Normal (Normal) mg/dL Ur Leukocyte Esterase Small H (Negative) Urine Microscopic RBC 5-15 H (0-3) per hpf Urine Microscopic WBC 15-30 H (0-3) per hpf Ur Squamous Epith Cells Many H (None-Few) per lpf Urine Bacteria None Seen (None-Few) per hpf Hyaline Casts Few (None-Few) per lpf Ur Culture Indicated? YES A (NO) Urine Test Negative (Negative) Consult Discharge Plan - Plan Referrals: Dinorah Mesa MD [Primary Care Provider] - 03/22/17 10:15 am - Attending Attestation I examined this patient and my medical decision-making was reviewed with the Resident Physician. I agree with the documented findings, disposition and treatment plan as described except to the extent set forth below. Patient is a 26 year old woman with past medical history mentioned below came in with sepsis. She had a lump in the left axilla 5 days prior that was painful and red. She then had more lesions on the side of the neck and another lesion on the labia that bleed spontaneously. Patient also had lesions in the mouth that are painful. Patient started having fevers on Wednesday and was having chills. Patient has 2 children 2 years old and 3 months old both with URI symptoms recently. Since admission, patient has had persistent fever, tachycardia and presenting WBC 13.9 with neutrophilic predominance. Wound cultures were obtained and HSV PCR and patient was started on empiric vancomycin and zosyn. At this time, pts lesions appear interesting. It seems to be viral exanthema vs autoimmune vs other. await labs to finalize will continue vancomycin since I think she has cellulitis/folliculitis at this point will continue to follow
[2017-03-10] MEDS: *HR* Heparin 5,000 UNIT/ML VIAL SQ SCH (16:00)
[2017-03-10] MEDS: *HR* HYDROcodone/Acet 5/325 mg TABLET PO PRN (16:03)
[2017-03-10] MEDS: Piperacillin/Tazobactam 3.375 GM in D5% in Water (Mini-Bag+) 100 ML IVPB SCH (16:04)
--- NOTE | 2017-03-10 19:32 | Dermatology Consult Note ---
Date of Encounter: 03/15/17 Time of Encounter: 16:25 History of Present Illness Reason for Consult: rash History of Present Illness: 26 y/o WF w/ hx of migraines and anxiety/depression and is also 3 months post c/o fever, joint aches and pains and mouth ulcers and sore lumps in b/l axilla. She did shave b/f this all started 3 days ago. Symptoms have progressively worsened over the last 3 days. She met SIRS criteria and was given VAnco in ER. She is now admitted for full evaluation and feels tired and w/ headache. He children recently had URI and no hx of foreign travel and currently not sexually active in her monogamous relationship Review of Systems General/Constitutional: Patient has fevers and chills but no weight loss Hematologic: Patient denies new or enlarging lumps or bumps except lumps in axilla . Skin: Patient denies new or changing moles, or rash other than what is mentioned above. Past Med Surg Social Fam HX - Past Medical History Medical history: migraine Psychiatric history: anxiety, depression - Past Surgical History Surgical History: no surgical history, other (bilateral tympanostomy as a child) - Social History Smoking Status: Never smoker Smokeless Tobacco Status: No Alcohol use: unknown Drug use: none - Family History Mother Race: Family Member Ethnicity: Non- Living Status: Still Living Hx Family Cardiac Disorders: Yes Hx Family Respiratory Disorders: No Hx Family Cancer: Yes (Colon, uterine, melanoma) Hx Family GI Disorders: No Hx Family Endocrine Disorder: No Hx Family Neuromuscular Disorders: No Hx Family Neurologic Disorders: No Hx Family HEENT Disorders: No Hx Family Autoimmune Disorders: No Father Race: Family Member Ethnicity: Non- Living Status: Still Living Hx Family Cardiac Disorders: Yes (HD) Brother Race: Family Member Ethnicity: Non- Living Status: Still Living Hx Family Medical Disorders: No Medications and Allergies BuPROPion XL (24 HR) [Wellbutrin Xl] 150 mg PO DAILY 02/09/16 [History] Rizatriptan Benzoate [Maxalt] 10 mg PO DAILY PRN 10/09/16 [History] Ethinyl Estradiol/Drospirenone [Debbie 28 Tablet] 1 tab PO DAILY 03/10/17 [History] Topiramate [Topamax] 50 mg PO DAILY 03/10/17 [History] Acetaminophen [Tylenol] 650 mg PO Q6HR PRN tab 03/15/17 [Rx] cephALEXin [Keflex] 500 mg PO QID #20 capsule 03/15/17 [Rx] Allergies No Known Allergies Allergy (Verified 03/10/17 08:05) Examination Vital Signs: Temp Pulse Resp BP Pulse Ox 99.1 F 109 16 123/79 100 03/10/17 16:17 03/10/17 16:17 03/10/17 16:17 03/10/17 16:17 03/10/17 16:17 General Examination: The patient appears alert, oriented X3, in no acute distress, healthy-appearing , normal mood. A detailed skin examination of sites including: scalp, head, neck , face, conjunctive, lids, lips, back, chest/breast/axilla, abdomen, bilateral upper extremities including hands/digits/fingernails, bilateral lower extremities including feet/digits/toenails, genital/groin/buttock, lymph nodes, was completed and found to be normal except: folliculocentric pustules on neck and scalp, punched out shallow ulcerations on inner lip, under tongue, and buccal mucosa and palate, folliculocentric pustules on mons pubis. pt w/ erythematous inflammed nodules, some w/ faint pustules on b/l axilla and right labia majora with nodule w/ crust/eshar. palms and soles clear. conjunctiva clear - Assessment and Plan (1) Folliculitis Status: Acute pt has constellation of interesting findings: fever, arthralgia, folliculitis, mouth ulcerations, and abscesses in axilla. I favor infectious etiology... could have staph infection and apthous ulcers. However, need to consider more rare causes of oral ulceration-- thus recommended more extensive viral titers as well. I did bacterial cultures of axilla and mons pubis and viral culture of lip. Jill is also in the running and would explain a lot of these findings, but I feel best to r/o infectious etiologies b/f strongly considering this very rare possibility. If you would like Derm to do a biopsy (presuming cultures and titers negative, we would be happy to perform these.). I am out of the office until Wednesday, but Dr. Amin will be in clinic and Dr. Nagy on Wednesday. Sarcoidosis would also be a rare possibility (2) Ulceration, oral mucosa Status: Acute (3) Abscess Status: Acute Procedure: Dermatology Date of procedure: 03/10/17 Procedure: no procedure done Consult Discharge Plan - Plan Additional Instructions: Continue taking Keflex for 5 days Scheduled follow-up appointment with PCP, utility bill complaints investigator, [employer]ER, and nursery teacher. Referrals: Laxmi Ryan MD [Non-Partnered Physician] - (Patient has a follow up already made and will be seeing Dr. Ryan next week. Thank you) Dinorah Mesa MD [Primary Care Provider] - 03/22/17 10:15 am Melanie Weller MD [Partnered Physician] - (Dr. Weller has made patient aware that the office will call her tomorrow and let her know the date and time of the hospital f/u. Thank you.) Alphonso Mitchell DO [Partnered Physician] - 03/26/17 3:00 pm Prescriptions: cephALEXin [Keflex] 500 mg PO QID #20 capsule
[2017-03-10] MEDS: *HR* Morphine 2 MG/ML SYRINGE IVP PRN (20:35)
[2017-03-10] MEDS: Acetaminophen 325 MG TABLET PO PRN (20:36)
[2017-03-10] MEDS ORDERED: Vancomycin 1,000 MG in D5% in Water 250 ML IVPB SCH (21:00)
[2017-03-10 21:09] LABS: Basophils % 0.2 %; Eosinophils % 0.1 %; Hematocrit 32.3 % (35.3-44.9); Immature Granulocytes % 0.5 % (0-4); Lymphocytes # 0.7 K/mcL (0.6-4.6); Lymphocytes % 5.1 %; Mean Corpuscular HGB Conc 34.7 g/dL (31.6-35.5); Mean Corpuscular Hemoglobin 28.7 pg (28.0-33.3); Mean Corpuscular Volume 82.8 fL (83.0-100.0); Monocytes # 1.1 K/mcL (0.0-1.3); Monocytes % 8.7 %; Neutrophils # 11.2 K/mcL (1.6-8.9); Platelet Count 148 K/mcL (140-400); Red Cell Distribution Width 13.6 % (11.5-14.5); Segmented Neutrophils % 85.4 %
[2017-03-10 21:11] LABS: Hemoglobin 11.2 g/dL (11.5-15.4)
[2017-03-10] MEDS: Magic Mouthwash 10 ML UD Cup PO SCH (22:00)
[2017-03-11] MEDS: 0.9 % Sodium Chloride 1,000 ML IVC SCH ×2 (00:14→14:09)
[2017-03-11] MEDS: Piperacillin/Tazobactam 3.375 GM in D5% in Water (Mini-Bag+) 100 ML IVPB SCH ×3 (00:16→17:31)
[2017-03-11] MEDS: Ketorolac 15 MG/ML VIAL IVP SCH ×4 (00:17→17:32)
[2017-03-11] MEDS: Vancomycin 1,000 MG in D5% in Water 250 ML IVPB SCH ×2 (00:22→11:09)
[2017-03-11] MEDS: *HR* Heparin 5,000 UNIT/ML VIAL SQ SCH ×3 (00:22→17:31)
[2017-03-11] MEDS: *HR* Morphine 2 MG/ML SYRINGE IVP PRN ×2 (04:16→21:32)
[2017-03-11] MEDS: Acetaminophen 325 MG TABLET PO PRN ×2 (04:17→11:10)
[2017-03-11 05:47] LABS: BUN/Creatinine Ratio 6 (6-26); Blood Urea Nitrogen 4 mg/dL (7-20); Calcium 8.4 mg/dL (8.6-10.8); Carbon Dioxide 20 mEq/L (19-29); Chloride 112 mEq/L (98-109); Glucose 112 mg/dL (70-99); Magnesium 1.7 mg/dL (1.6-2.6); Osmolality,Calculated 286 (280-300); Potassium 3.3 mEq/L (3.5-4.5); Sodium 139 mEq/L (136-145); eGFR For African Americans > 60 (> 60); eGFR For Non-African Americans > 60 (> 60)
[2017-03-11 05:56] LABS: Basophils % 0.1 %; Eosinophils % 0.2 %; Hematocrit 33.2 % (35.3-44.9); Immature Granulocytes % 0.5 % (0-4); Lymphocytes # 0.7 K/mcL (0.6-4.6); Mean Corpuscular HGB Conc 33.1 g/dL (31.6-35.5); Mean Corpuscular Hemoglobin 28.4 pg (28.0-33.3); Mean Corpuscular Volume 85.6 fL (83.0-100.0); Mean Platelet Volume 11.7 fL (9.4-12.4); Monocytes # 1.3 K/mcL (0.0-1.3); Monocytes % 9.7 %; Platelet Count 160 K/mcL (140-400); Red Blood Count 3.88 M/mcL (3.82-4.97); Red Cell Distribution Width 13.8 % (11.5-14.5); Segmented Neutrophils % 84.5 %
--- NOTE | 2017-03-11 08:24 | Internal Med Progress Note ---
<Ten Martinez - Last Filed: 03/11/17 16:12> Date of Encounter: 03/11/17 Time of Encounter: 08:23 - Assessment and plan (1) Sepsis Current Visit: Yes Status: Acute Assessment and plan: Tmax 102.9, continue Tylenol WBC 13.0, was 13.8 yesterday. ESR of 54 and CRP of [address] CT revealed bilateral axillary skin thickening suggestive of cellulitis Wound cultures negative, Blood cultures pending Qualifiers: Sepsis type: sepsis due to unspecified organism Qualified Code(s): A41.9 - Sepsis, unspecified organism (2) Folliculitis Current Visit: Yes Status: Acute Assessment and plan: Dermatology and IV following ID recommends continuing Vancomycin. Can switch to PO bactrim upon discharge. Possible sarcoidosis, COLETTE Level pending Parvo, EBV, CMV, coxscakie are pending Consider punch biopsy (3) Aphthous ulcer of mouth Current Visit: Yes Status: Acute Assessment and plan: Continue to monitor. Oral culture results are negative (4) DVT prophylaxis Current Visit: Yes Status: Acute Assessment and plan: Heparin Patient seen and examined, plan and discussed with and agreed upon with Dr. Hassan - Subjective Interval history: Patient rested comfortably in bed. Patient reports decreased appetite due to oral ulcers. She reports fever and diffuse pain. - Constitutional Vitals: Temp Pulse Resp BP Pulse Ox 100.2 F H 94 16 104/64 98 03/11/17 07:00 03/11/17 07:00 03/11/17 07:00 03/11/17 07:00 03/11/17 07:00 General appearance: Present: cooperative, mild distress, A&O X 3, pleasant, answers questions appropriately - Head Head exam: Present: atraumatic, normocephalic - Eye Eye exam: Present: PERRL, conjuntiva pink, sclera anicteric Pupils: Present: PERRL - ENT ENT exam: Present: mucous membranes moist Additional comments: Multiple small 5 mm aphthous ulcers in oral mucosa, no lymphadenopathy - Neck Neck exam general surgery: Present: supple, trachea midline. Absent: lymphadenopathy - Respiratory Respiratory exam: Present: CTAB. Absent: accessory muscle use, rales, rhonchi, wheezes - Cardiovascular Cardiovascular exam: Present: +S1, +S2, tachycardia. Absent: diastolic murmur, gallop, RRR, rubs, systolic murmur - GI/Abdominal GI/Abdominal exam: Present: normal bowel sounds, soft, no peritoneal signs. Absent: distended, tenderness - Extremities Exam Extremities exam: Present: warm, radial pulses palpable and symetrical. Absent : calf tenderness, cyanotic, pedal edema - Neurological Exam Neurological exam: Present: CN II-XII intact, oriented X3, no focal deficits. Absent: pronater drift, facial droop, speech deficit - Skin Skin exam: Present: dry, erythema, intact, rash Additional comments: Small 2 x 3 cm erythematous nodule in axilla. 1cm erythematous patches bilateral anterior shins, palms and soles are clear Internal Medicine: Result - Labs CBC & Chem 7: 03/11/17 04:47 03/11/17 04:47 Labs: Short CBC 03/10/17 03/11/17 Range/Units 20:54 04:47 WBC 13.2 H 13.0 H (4.3-11.1) K/mcL Hgb 11.2 L D 11.0 L (11.5-15.4) g/dL Hct 32.3 L 33.2 L (35.3-44.9) % Plt Count 148 160 (140-400) K/mcL Neutrophils # 11.2 H 11.0 H (1.6-8.9) K/mcL BMP 03/11/17 04:47 Sodium 139 Potassium 3.3 L Chloride 112 H Carbon Dioxide 20 BUN 4 L Creatinine 0.71 Glucose 112 H Calcium 8.4 L Urine 03/10/17 Range/Units 15:00 Urine Color Dark Yellow (Yellow) Urine Clarity Cloudy A (Clear) Urine pH 6.0 (5.0-8.0) pH Units Ur Specific [place] > 1.030 H (1.010-1.025) Urine Protein 30 H (Neg-Trace) mg/dL Urine Glucose (UA) Normal (Normal) mg/dL - ABG Interpretation ABG results: PT/INR, D-dimer PT 12.4 Seconds (9.4-12.1) H 03/10/17 11:51 - Impressions Impressions Chest CT 03/10/17 16:37 IMPRESSION: 1. Symmetric bilateral axillary skin thickening and mild subcutaneous inflammatory stranding could be due to cellulitis ; correlate with direct inspection. D/ / Umair Camara MD / Umair Camara MD Interpreting Provider: Umair Camara MD Consult Discharge Plan - Plan Referrals: Dinorah Mesa MD [Primary Care Provider] - 03/22/17 10:15 am <Zachary Hassan P - Last Filed: 03/11/17 18:19> Date of Encounter: 03/11/17 - Constitutional Vitals: Temp Pulse Resp BP Pulse Ox 99.3 F 91 14 114/74 95 03/11/17 15:22 03/11/17 15:22 03/11/17 15:22 03/11/17 15:22 03/11/17 15:22 Internal Medicine: Result - Labs CBC & Chem 7: 03/11/17 04:47 03/11/17 04:47 Labs: Short CBC 03/10/17 03/11/17 Range/Units 20:54 04:47 WBC 13.2 H 13.0 H (4.3-11.1) K/mcL Hgb 11.2 L D 11.0 L (11.5-15.4) g/dL Hct 32.3 L 33.2 L (35.3-44.9) % Plt Count 148 160 (140-400) K/mcL Neutrophils # 11.2 H 11.0 H (1.6-8.9) K/mcL BMP 03/11/17 04:47 Sodium 139 Potassium 3.3 L Chloride 112 H Carbon Dioxide 20 BUN 4 L Creatinine 0.71 Glucose 112 H Calcium 8.4 L - ABG Interpretation ABG results: PT/INR, D-dimer PT 12.4 Seconds (9.4-12.1) H 03/10/17 11:51 - Impressions Impressions Chest CT 03/10/17 16:37 IMPRESSION: 1. Symmetric bilateral axillary skin thickening and mild subcutaneous inflammatory stranding could be due to cellulitis ; correlate with direct inspection. D/ / Umair Camara MD / Umair Camara MD Interpreting Provider: Umair Camraa MD - Attending Attestation I examined this patient and my medical decision-making was reviewed with the Resident Physician. I agree with the documented findings, disposition and treatment plan as described except to the extent set forth below. dermatology input appreciated and skin biopsy results awaited ID input appreciated. please see detaill ID review. additional information as follows. 26/F Mother was diagnosed with colon cancer at age 48 and has breast cancer along with skin neoplasia. patient was in [facility] recently and claims that had some rash after that. plan will keep close eye
[2017-03-11] MEDS: Magic Mouthwash 10 ML UD Cup PO SCH ×3 (08:27→17:31)
--- NOTE | 2017-03-11 09:01 | Electrocardiograph Report ---
[place] [facility] Test Date: 2017-03-10 Pat Name: Fifi Broussard Department: 105 Room: 3A25 Gender: F [employer] Mechanic: : 1990 Requested By: Yuri Pickering Order Number: [id number] Reading MD: Anup Monreal MD Measurements Intervals [place] Rate: 106 P: 46 WA: 170 QRS: 23 QRSD: 84 T: 4 QT: 315 QTc: 377 Interpretive Statements SINUS TACHYCARDIA ST DEVIATION AND MODERATE T-WAVE ABNORMALITY, CONSIDER ANTEROLATERAL ISCHEMIA [- 0.1+ mV T WAVE IN V3-V6] Electronically Signed On 03-11-2017 8:59:56 EDT by Anup Monreal MD
--- NOTE | 2017-03-11 10:14 | Infectious Disease Progress No ---
Date of Encounter: 03/11/17 Time of Encounter: 10:10 - Assessment and Plan (1) Sepsis Current Visit: Yes Status: Acute Patient still meets SIRS criteria with Tachycardia, fever and leukocytosis. Tmax 102.9 WBC are still elevated at 13.0 this is down from 13.8 yesterday. Wound cultures from the mouth and groin collected on 03/10/17 show no growth to date. I discussed blood cultures with micro. Preliminarily no growth at this time from blood cultures collected on 03/10/17. inflammatory markers are elevated with ESR of 54 and CRP of 170. RF was negative. SOLEDAD pending HIV was negative. Other viral tests are pending. UA shows small LE,WBC, and RBC. However she denies Lower urinary tact symptoms. CT of the chest with contrast reveals: "Symmetric bilateral axillary skin thickening and mild subcutaneous inflammatory stranding could be due to cellulitis ; correlate with direct inspection." Exam from yesterday is essentially unchanged other than new skin lesion on the right rinaldi. Lesion on left rinaldi is more erythematous and pronounced today. Appears to be possibly erythema nodosum. Etiology is still unclear at this time. CT findings would suggest possible cellulitis of axillae rather than Lymphadenopathy. However she dose not appear to be improving on antibiotics thus far. With oral ulceration, what appears to be erythema nodosum, arthralgias, and elevated inflammatory markers would consider possibly an inflammatory condition. Viral causes are also being considered and viral tests for Parvo, EBV, CMV, coxscakie are pending. May also consider more than one underlying processes to explain her symptoms. Recommendations: Discontinue Zosyn. Continue Vancomycin. Can Switch to PO BActrim on discharge. We will follow up with cultures and viral panels. Continue to monitor for drug toxicities. continue to monitor renal function. Qualifiers: Sepsis type: sepsis due to unspecified organism Qualified Code(s): A41.9 - Sepsis, unspecified organism (2) Ulceration, oral mucosa Current Visit: Yes Status: Acute possibly viral? we will follow up with viral panels. patient still symptomatic. Symptoms are being managed by primary team. (3) Rash Current Visit: Yes Status: Acute patient now has bilateral symmetrical erythematous skin lesions of the anterior shins bilaterally. Possible erythema nodosum. PAtient radhaos has multiple raises erythematous nodular skin lesions of the bilateral axillae. Measuring 2-[address] scan would suggest possible cellulitis. Recommend continuing Vancomycin. Can switch to PO bactrim upon discharge. (4) History of recent childbirth Current Visit: Yes Status: Acute patient had 3 months ago at [place] without complications. - Subjective Interval history: No major events overnight. This AM patient states she is feeling about the same. She states she was unable to eat breakfast this morning due to the pain in her mouth. She also has continued pain in her ankles and knees. She states that this is associated with her fever. She states now she is also hurting all over. She states her axillae are still painful and has not had any improvement from yesterdaty. She states that she also began her period this AM. She denies any adverse reaction to the antibiotics. Specifically she denies pruritis, and diarrhea. She has no further complaints or concerns this AM. Infect Dis PN-Objective Data - Labs CBC & Chem 7: 03/11/17 04:47 03/11/17 04:47 Labs: Laboratory Results - last 24 hr 03/10/17 03/10/17 03/10/17 13:00 15:00 15:00 WBC RBC Hgb Hct MCV MCH MCHC RDW Plt Count MPV Immature Gran % Seg Neutrophils % Lymphocytes % Monocytes % Eosinophils % Basophils % Neutrophils # Lymphocytes # Monocytes # Eosinophils # Basophils # ESR Sodium Potassium Chloride Carbon Dioxide BUN Creatinine Est GFR ( Amer) Est GFR (Non-Af Amer) BUN/Creatinine Ratio Glucose Calculated Osmolality Lactic Acid 0.6 Calcium Phosphorus Magnesium C-Reactive Protein B-Natriuretic Peptide Urine Color Dark Yellow Urine Clarity Cloudy A Urine pH 6.0 Ur Specific [place] > 1.030 H Urine Protein 30 H Urine Glucose (UA) Normal Urine Ketones 80 H Urine Blood Negative Urine Nitrite Negative Urine Bilirubin Small H Urine Urobilinogen Normal Ur Leukocyte Esterase Small H Urine Microscopic RBC 5-15 H Urine Microscopic WBC 15-30 H Ur Squamous Epith Cells Many H Urine Bacteria None Seen Hyaline Casts Few Ur Culture Indicated? YES A Urine Test Negative Rheumatoid Factor HIV Ag/Ab Combo Qual Infectious [place] Assay 03/10/17 03/10/17 03/10/17 16:37 16:37 16:37 WBC RBC Hgb Hct MCV MCH MCHC RDW Plt Count MPV Immature Gran % Seg Neutrophils % Lymphocytes % Monocytes % Eosinophils % Basophils % Neutrophils # Lymphocytes # Monocytes # Eosinophils # Basophils # ESR 54 H Sodium Potassium Chloride Carbon Dioxide BUN Creatinine Est GFR ( Amer) Est GFR (Non-Af Amer) BUN/Creatinine Ratio Glucose Calculated Osmolality Lactic Acid Calcium Phosphorus Magnesium C-Reactive Protein 170 H B-Natriuretic Peptide Urine Color Urine Clarity Urine pH Ur Specific [place] Urine Protein Urine Glucose (UA) Urine Ketones Urine Blood Urine Nitrite Urine Bilirubin Urine Urobilinogen Ur Leukocyte Esterase Urine Microscopic RBC Urine Microscopic WBC Ur Squamous Epith Cells Urine Bacteria Hyaline Casts Ur Culture Indicated? Urine Test Rheumatoid Factor < 15 HIV Ag/Ab Combo Qual Infectious [place] Assay 03/10/17 03/10/17 03/10/17 16:37 16:39 20:54 WBC 13.2 H RBC 3.90 Hgb 11.2 L D Hct 32.3 L MCV 82.8 L MCH 28.7 MCHC 34.7 RDW 13.6 Plt Count 148 MPV 11.0 Immature Gran % 0.5 Seg Neutrophils % 85.4 Lymphocytes % 5.1 Monocytes % 8.7 Eosinophils % 0.1 Basophils % 0.2 Neutrophils # 11.2 H Lymphocytes # 0.7 Monocytes # 1.1 Eosinophils # 0.0 Basophils # 0.0 ESR Sodium Potassium Chloride Carbon Dioxide BUN Creatinine Est GFR ( Amer) Est GFR (Non-Af Amer) BUN/Creatinine Ratio Glucose Calculated Osmolality Lactic Acid Calcium Phosphorus Magnesium C-Reactive Protein B-Natriuretic Peptide Urine Color Urine Clarity Urine pH Ur Specific [place] Urine Protein Urine Glucose (UA) Urine Ketones Urine Blood Urine Nitrite Urine Bilirubin Urine Urobilinogen Ur Leukocyte Esterase Urine Microscopic RBC Urine Microscopic WBC Ur Squamous Epith Cells Urine Bacteria Hyaline Casts Ur Culture Indicated? Urine Test Rheumatoid Factor HIV Ag/Ab Combo Qual Nonreactive Infectious [place] Assay Negative 03/11/17 03/11/17 03/11/17 04:47 04:47 04:47 WBC 13.0 H RBC 3.88 Hgb 11.0 L Hct 33.2 L MCV 85.6 MCH 28.4 MCHC 33.1 RDW 13.8 Plt Count 160 MPV 11.7 Immature Gran % 0.5 Seg Neutrophils % 84.5 Lymphocytes % 5.0 Monocytes % 9.7 Eosinophils % 0.2 Basophils % 0.1 Neutrophils # 11.0 H Lymphocytes # 0.7 Monocytes # 1.3 Eosinophils # 0.0 Basophils # 0.0 ESR Sodium 139 Potassium 3.3 L Chloride 112 H Carbon Dioxide 20 BUN 4 L Creatinine 0.71 Est GFR ( Amer) > 60 Est GFR (Non-Af Amer) > 60 BUN/Creatinine Ratio 6 Glucose 112 H Calculated Osmolality 286 Lactic Acid Calcium 8.4 L Phosphorus 2.0 L Magnesium 1.7 C-Reactive Protein B-Natriuretic Peptide 101 H Urine Color Urine Clarity Urine pH Ur Specific [place] Urine Protein Urine Glucose (UA) Urine Ketones Urine Blood Urine Nitrite Urine Bilirubin Urine Urobilinogen Ur Leukocyte Esterase Urine Microscopic RBC Urine Microscopic WBC Ur Squamous Epith Cells Urine Bacteria Hyaline Casts Ur Culture Indicated? Urine Test Rheumatoid Factor HIV Ag/Ab Combo Qual Infectious Sutton Assay Cultures: Cultures 03/10/17 16:00 Wound Culture - Preliminary Mouth No pathogens isolated. 03/10/17 16:00 Wound Culture - Preliminary Groin No growth. Serology 03/10/17 03/10/17 03/10/17 Range/Units 16:39 16:37 15:00 Urine Color Dark Yellow (Yellow) Urine Clarity Cloudy A (Clear) Urine pH 6.0 (5.0-8.0) pH Units Ur Specific [place] > 1.030 H (1.010-1.025) Urine Protein 30 H (Neg-Trace) mg/dL Urine Glucose (UA) Normal (Normal) mg/dL Urine Ketones 80 H (Negative) mg/dL Urine Blood Negative (Negative) Urine Nitrite Negative (Negative) Urine Bilirubin Small H (Negative) Urine Urobilinogen Normal (Normal) mg/dL Ur Leukocyte Esterase Small H (Negative) Urine Microscopic RBC 5-15 H (0-3) per hpf Urine Microscopic WBC 15-30 H (0-3) per hpf Ur Squamous Epith Cells Many H (None-Few) per lpf Urine Bacteria None Seen (None-Few) per hpf Hyaline Casts Few (None-Few) per lpf Ur Culture Indicated? YES A (NO) Urine Test (Negative) HIV Ag/Ab Combo Qual Nonreactive (Nonreactive) Infectious [place] Assay Negative (Negative) 03/10/17 Range/Units 15:00 Urine Color (Yellow) Urine Clarity (Clear) Urine pH (5.0-8.0) pH Units Ur Specific [place] (1.010-1.025) Urine Protein (Neg-Trace) mg/dL Urine Glucose (UA) (Normal) mg/dL Urine Ketones (Negative) mg/dL Urine Blood (Negative) Urine Nitrite (Negative) Urine Bilirubin (Negative) Urine Urobilinogen (Normal) mg/dL Ur Leukocyte Esterase (Negative) Urine Microscopic RBC (0-3) per hpf Urine Microscopic WBC (0-3) per hpf Ur Squamous Epith Cells (None-Few) per lpf Urine Bacteria (None-Few) per hpf Hyaline Casts (None-Few) per lpf Ur Culture Indicated? (NO) Urine Test Negative (Negative) HIV Ag/Ab Combo Qual (Nonreactive) Infectious Sutton Assay (Negative) - Impressions Impressions Chest CT 03/10/17 16:37 IMPRESSION: 1. Symmetric bilateral axillary skin thickening and mild subcutaneous inflammatory stranding could be due to cellulitis ; correlate with direct inspection. D/ / Umair Camara MD / Umair Camara MD Interpreting Provider: Umiar Camara MD Exam - Constitutional Vitals: Temp Pulse Resp BP Pulse Ox 100.2 F H 94 16 104/64 98 03/11/17 07:00 03/11/17 07:00 03/11/17 07:00 03/11/17 07:00 03/11/17 07:00 Exam: General: The is a very pleaseant Well developed and well nourished 26 y.o. lady who is alert and orientated to person, place, time, and situation. She is lying in bed, appears that she feels ill but in no acute distress at this time. HEENT: NC/AT anicteric sclera, Normal external appearance of the ears, nose , and eyes. Moist mucous membranes, apthous ulcers still present in left mucosa and under lower lip and under tongue. I did not identify any new ulcers. Uvula, tongue and trachea are midline. no cervicel, submandibular or cervicel lymphadenopathy palpable on exam. Heart: Mildly tachycardic, regular rhythm 1/6 systolic ejection murmur heard best at the upper right sternal border. No JVD. Lungs: Normal effort of breathing, CTAB. Abdomen: Soft, Nondistended, BS present, No tenderness, No organomegally. MSK: grossly normal for age without deformity. Extremities: no Clubbing cyanosis or edema. Integument: She still has the area of raised erythematous nodules in the axillae. No noticibel change from yesterday. She has new area on of erythema on the left rinaldi that is indurated flat and mildly painful. She has a similar area on the left rinaldi as well. Appears to be possibly erythema nodosum. Psych: orientated, normal affect, cooperates fully with the exam. Consult Discharge Plan - Plan Referrals: Dinorah Mesa MD [Primary Care Provider] - 03/22/17 10:15 am - Attending Attestation I examined this patient and my medical decision-making was reviewed with the Resident Physician. I agree with the documented findings, disposition and treatment plan as described except to the extent set forth below.
[2017-03-11] MEDS: Pantoprazole 40 MG VIAL IVP SCH (11:09)
[2017-03-11] MEDS: ETHINYL ESTRADIOL PO SCH (11:11)
[2017-03-11] MEDS: BuPROPion XL (24 HR) 150 MG TABLET PO SCH (11:11)
[2017-03-11] MEDS: DROSPIRENONE PO SCH (11:11)
[2017-03-11] MEDS: Topiramate 25 MG TABLET PO SCH (11:11)
[2017-03-11 16:29] LABS: Adenovirus Not Detected (Not Detect); Bordetella Pertussis Not Detected (Not Detect); Chlamydophila pneumoniae Not Detected (Not Detect); Coronavirus 229E Not Detected (Not Detect); Coronavirus HKU1 Not Detected (Not Detect); Coronavirus NL63 Not Detected (Not Detect); Coronavirus OC43 Not Detected (Not Detect); Human Metapneumovirus Not Detected (Not Detect); Human Rhinovirus/Enterovirus Not Detected (Not Detect); Influenza A Subtype 2009 H1 Not Detected (Not Detect); Influenza A Untypeable Not Detected (Not Detect); Influenza B Not Detected (Not Detect); Mycoplasma pneumoniae Not Detected (Not Detect); Parainfluenza Virus 1 Not Detected (Not Detect); Parainfluenza Virus 2 Not Detected (Not Detect); Parainfluenza Virus 3 Not Detected (Not Detect); Parainfluenza Virus 4 Not Detected (Not Detect); Respiratory Syncytial Virus Not Detected (Not Detect)
[2017-03-11] MEDS: *HR* HYDROcodone/Acet 5/325 mg TABLET PO PRN (20:21)
[2017-03-11 21:42] LABS: HSV Source MOUTH
[2017-03-12] MEDS: Vancomycin 1,250 MG in D5% in Water 250 ML IVPB SCH ×3 (00:32→20:29)
[2017-03-12] MEDS: Ketorolac 15 MG/ML VIAL IVP SCH ×4 (00:34→17:59)
[2017-03-12] MEDS: *HR* Heparin 5,000 UNIT/ML VIAL SQ SCH ×3 (00:34→18:02)
[2017-03-12] MEDS: 0.9 % Sodium Chloride 1,000 ML IVC SCH ×2 (02:10→16:00)
[2017-03-12] MEDS: *HR* HYDROcodone/Acet 5/325 mg TABLET PO PRN ×4 (02:11→20:31)
[2017-03-12] MEDS: Piperacillin/Tazobactam 3.375 GM in D5% in Water (Mini-Bag+) 100 ML IVPB SCH ×3 (02:13→17:58)
[2017-03-12] MEDS: *HR* Morphine 2 MG/ML SYRINGE IVP PRN (04:29)
--- NOTE | 2017-03-12 08:26 | Internal Med Progress Note ---
<Ten Martinez - Last Filed: 03/12/17 14:10> Date of Encounter: 03/12/17 Time of Encounter: 08:26 - Assessment and plan (1) Sepsis Current Visit: Yes Status: Acute Assessment and plan: Afebrile, Tylenol prn No leukocytosis. ESR of 54 and CRP of [address] revealed bilateral axillary skin thickening suggestive of cellulitis CT abdomen and pelvis pending Continue vancomycin and Zosyn (day 2 ) Wound cultures negative, Blood cultures showed no growth Qualifiers: Sepsis type: sepsis due to unspecified organism Qualified Code(s): A41.9 - Sepsis, unspecified organism (2) Folliculitis Current Visit: Yes Status: Acute Assessment and plan: Dermatology and IV following. She was started on oral contraceptives 4 weeks prior to the onset of symptoms. ID recommends continuing Vancomycin. Continue Zosyn at this time. Can switch to PO bactrim upon discharge. Possible sarcoidosis, COLETTE Level pending Parvo, EBV, CMV, coxscakie are pending Lymph node biopsy results pending. (3) Aphthous ulcer of mouth Current Visit: Yes Status: Acute Assessment and plan: Etiology unclear: possibly viral vs. oral contraceptive -induced. Continue to monitor. Oral culture results are negative (4) DVT prophylaxis Current Visit: Yes Status: Acute Assessment and plan: Heparin Patient seen and examined, plan and discussed with and agreed upon with Dr. Hassan - Subjective Interval history: Patient rested comfortably in bed. Patient reports decreased appetite due to oral ulcers. She reports axillary pain and painful oral ulcers. She denies any worsening or new rash - Constitutional Vitals: Temp Pulse Resp BP Pulse Ox 98.5 F 88 16 122/79 99 03/12/17 07:23 03/12/17 07:23 03/12/17 07:23 03/12/17 07:23 03/12/17 07:23 General appearance: Present: cooperative, A&O X 3, pleasant, no acute distress, answers questions appropriately - Head Head exam: Present: atraumatic, normocephalic - Eye Eye exam: Present: PERRL, conjuntiva pink, sclera anicteric Pupils: Present: PERRL - ENT ENT exam: Present: mucous membranes moist Additional comments: Multiple small 5 mm aphthous ulcers in oral mucosa, no cervical lymphadenopathy - Neck Neck exam general surgery: Present: supple, trachea midline. Absent: lymphadenopathy - Respiratory Respiratory exam: Present: CTAB. Absent: accessory muscle use, rales, rhonchi, wheezes - Cardiovascular Cardiovascular exam: Present: RRR, +S1, +S2. Absent: diastolic murmur, gallop, rubs, systolic murmur - GI/Abdominal GI/Abdominal exam: Present: normal bowel sounds, soft, no peritoneal signs. Absent: distended, tenderness - Extremities Exam Extremities exam: Present: warm, radial pulses palpable and symetrical. Absent : calf tenderness, cyanotic, pedal edema - Neurological Exam Neurological exam: Present: CN II-XII intact, oriented X3, no focal deficits. Absent: pronater drift, facial droop, speech deficit - Psychiatric Psychiatric exam: Present: normal affect, normal mood - Skin Skin exam: Present: dry, erythema, intact, vesicles, warm Additional comments: Small 2 x 3 cm erythematous non-draining nodules in bilateral axilla. 1cm erythematous patches bilateral anterior shins, palms and soles are clear Internal Medicine: Result - Labs CBC & Chem 7: 03/12/17 08:07 03/12/17 08:07 - ABG Interpretation ABG results: PT/INR, D-dimer PT 12.4 Seconds (9.4-12.1) H 03/10/17 11:51 Consult Discharge Plan - Plan Referrals: Dinorah Mesa MD [Primary Care Provider] - 03/22/17 10:15 am <Zachary Hassan P - Last Filed: 03/12/17 17:17> Date of Encounter: 03/12/17 - Constitutional Vitals: Temp Pulse Resp BP Pulse Ox 98.6 F 87 18 109/72 100 03/12/17 14:25 03/12/17 14:25 03/12/17 14:25 03/12/17 14:25 03/12/17 14:25 Internal Medicine: Result - Labs CBC & Chem 7: 03/12/17 08:07 03/12/17 08:07 Labs: Short CBC 03/12/17 Range/Units 08:07 WBC 9.8 (4.3-11.1) K/mcL Hgb 10.4 L (11.5-15.4) g/dL Hct 31.0 L (35.3-44.9) % Plt Count 177 (140-400) K/mcL Neutrophils # 7.7 (1.6-8.9) K/mcL BMP 03/12/17 08:07 Sodium 141 Potassium 3.3 L Chloride 113 H Carbon Dioxide 23 BUN 4 L Creatinine 0.64 Glucose 95 Calcium 8.6 Liver Function 03/12/17 Range/Units 08:07 Total Bilirubin 0.7 (0.2-1.2) mg/dL AST 52 H (5-34) Units/L ALT 19 (0-55) Units/L Alkaline Phosphatase 90 (38-126) Units/L Albumin 2.7 L (3.5-5.0) g/dL - ABG Interpretation ABG results: PT/INR, D-dimer PT 12.4 Seconds (9.4-12.1) H 03/10/17 11:51 - Impressions Impressions Abdomen/Pelvis CT 03/12/17 14:45 IMPRESSION: Minimal free pelvic fluid noted. This is not unusual in a young female patient. Presacral stranding. This is indeterminate without fluid collection. Although this could be related to the free pelvic fluid, sequela of an inflammatory/ infectious process is possible. There is no definite wall thickening in the adjacent rectosigmoid region. Fleischner Society guidelines for follow-up and management of incidentally detected pulmonary nodules: Single Solid Nodule: Nodule size less than 6 mm In a low-risk patient, no routine follow-up. In a high-risk patient, optional CT at 12 months. Nodule size equals 6-8 mm In a low-risk patient, CT at 6-12 months, then consider CT at 18-24 months. In a high-risk patient, CT at 6-12 months, then CT at 18-24 months. Nodule size greater than 8 mm In a low-risk patient, consider CT, PET/CT, or tissue sampling at 3 months. In a high-risk patient, consider CT, PET/CT, or tissue sampling at 3 months. Multiple Solid Nodules: Nodule size less than 6 mm In a low-risk patient, no routine follow-up. In a high-risk patient, optional CT at 12 months. Nodule size equals 6-8 mm In a low-risk patient, CT at 3-6 months, then consider CT at 18-24 months. In a high-risk patient, CT at 3-6 months, then CT at 18-24 months. Nodule size greater than 8 mm In a low-risk patient, CT at 3-6 months, then consider CT at 18-24 months. In a high-risk patient, CT at 3-6 months, then CT at 18-24 months. - Low risk patients include individuals with minimal or absent history of smoking and other known risk factors. - High risk patients include individuals with a history or smoking or known risk factors. Radiology 2017 http://pubs.rsna.org/doi/full/10.1148/radiol.[email or web address] D/ / Nicholas Brooks / Nicholas Brooks Interpreting Provider: Nicholas Brooks - Attending Attestation I examined this patient and my medical decision-making was reviewed with the Resident Physician. I agree with the documented findings, disposition and treatment plan as described except to the extent set forth below. CT abdomen negative grossly as per report will continue same management
[2017-03-12 08:37] LABS: Basophils % 0.2 %; Eosinophils # 0.1 K/mcL (0.0-0.6); Eosinophils % 0.8 %; Hemoglobin 10.4 g/dL (11.5-15.4); Immature Granulocytes % 0.5 % (0-4); Lymphocytes # 1.1 K/mcL (0.6-4.6); Lymphocytes % 11.1 %; Mean Corpuscular HGB Conc 33.5 g/dL (31.6-35.5); Mean Corpuscular Hemoglobin 28.9 pg (28.0-33.3); Mean Corpuscular Volume 86.1 fL (83.0-100.0); Mean Platelet Volume 11.2 fL (9.4-12.4); Monocytes # 0.8 K/mcL (0.0-1.3); Monocytes % 8.3 %; Neutrophils # 7.7 K/mcL (1.6-8.9); Platelet Count 177 K/mcL (140-400); Red Cell Distribution Width 13.7 % (11.5-14.5); Segmented Neutrophils % 79.1 %
[2017-03-12] MEDS: Magic Mouthwash 10 ML UD Cup PO SCH ×3 (09:28→18:02)
[2017-03-12] MEDS: Pantoprazole 40 MG VIAL IVP SCH (09:28)
[2017-03-12] MEDS: BuPROPion XL (24 HR) 150 MG TABLET PO SCH (09:29)
[2017-03-12] MEDS: Topiramate 25 MG TABLET PO SCH (09:29)
[2017-03-12 09:31] LABS: Alanine Aminotransferase 19 Units/L (0-55); Albumin 2.7 g/dL (3.5-5.0); Albumin/Globulin Ratio 0.8 (1.1-2.2); Alkaline Phosphatase 90 Units/L (38-126); Aspartate Amino Transferase 52 Units/L (5-34); BUN/Creatinine Ratio 6 (6-26); Bilirubin,Total 0.7 mg/dL (0.2-1.2); Blood Urea Nitrogen 4 mg/dL (7-20); Calcium 8.6 mg/dL (8.6-10.8); Carbon Dioxide 23 mEq/L (19-29); Chloride 113 mEq/L (98-109); Globulin 3.5 g/dL (2.4-3.5); Glucose 95 mg/dL (70-99); Osmolality,Calculated 289 (280-300); Potassium 3.3 mEq/L (3.5-4.5); Sodium 141 mEq/L (136-145); Total Protein 6.2 g/dL (6.0-8.3); eGFR For African Americans > 60 (> 60); eGFR For Non-African Americans > 60 (> 60)
[2017-03-12] MEDS: ETHINYL ESTRADIOL PO SCH (09:51)
[2017-03-12] MEDS: DROSPIRENONE PO SCH (09:51)
[2017-03-12 10:15] LABS: HSV 1 DNA Not Detected (Not Detect); HSV 2 DNA Not Detected (Not Detect)
--- NOTE | 2017-03-12 11:24 | Infectious Disease Progress No ---
Date of Encounter: 03/12/17 Time of Encounter: 11:18 - Assessment and Plan (1) Sepsis Current Visit: Yes Status: Acute The patient had three SIRS criteria on admission. Etiology unclear. Improved. The patient has been afebrile x 24 hours. Her WBC has normalized. Tachycardia has resolved. Blood cultures drawn 03/10/17 are NGTD x 2 sets. Wound cultures obtained from the neck, mouth, and groin are negative as well. Urine culture obtained on admission is negative. RF negative. SOLEDAD pending. HIV non-reactive. CMV, Parvo, EBV, and Coxsackie virus serologies are pending. Qualifiers: Sepsis type: sepsis due to unspecified organism Qualified Code(s): A41.9 - Sepsis, unspecified organism (2) Folliculitis Current Visit: Yes Status: Acute Location: Back, bilateral axilla, groin. Dermatology consulted and following. Continue Vancomycin IV. Pharmacy to dose. Goal trough approximately 15. Vanc trough yesterday 5.1. Will discuss dosing with pharmacy. Duration of treatment depends on the clinical picture. Can likely switch to PO Bactrim when ready for discharge. Monitor renal function and for drug toxicity and dose-adjust antibiotics. (3) Ulceration, oral mucosa Current Visit: Yes Status: Acute Etiology unclear: possibly viral vs. oral contraceptive -induced. We will follow up with viral panels. Patient still symptomatic. Symptoms are being managed by primary team. (4) Axillary symptom Current Visit: Yes Status: Acute Location: bilateral axilla. Patient complains of pain, redness, swelling, and "lumps." CT scan read as symmetrical bilateral axillary skin thickening and mild subcutaneous inflammatory stranding could be due to cellulitis. Dermatology consulted and following. Status post biopsy per dermatology. Pathology pending. Continue antibiotics as above. Duration of treatment depends on the clinical picture. Continue comfort measures: pain medications, warm compresses, etc. (5) Rash Current Visit: Yes Status: Acute Patient now has bilateral symmetrical erythematous skin lesions of the anterior shins bilaterally. Possible erythema nodosum. (6) History of recent childbirth Current Visit: Yes Status: Acute Patient had 3 months ago at [place] without complications. She was started on oral contraceptives 4 weeks prior to the onset of symptoms. - Subjective Interval history: Patient seen and examined. No acute events noted overnight. Patient resting in bed with family at the bedside. States that she feels better now that shes not having fevers. Denies chills or rigors overnight. Denies chest pain, shortness of breath, or cough. Denies nausea, vomiting, diarrhea, or constipation. States she continues to have difficulty eating/drinking due to the mouth ulcers. States today is the first day she has felt like eating. Denies abdominal pain or urinary complaints. Continues to report painful lesions to the bilateral axilla and groin/labia, but states they are improved. Status post skin biopsy yesterday per dermatology. Reports a new skin lesion to the right ankle/dorsal foot area. Infect Dis PN-Objective Data - Labs CBC & Chem 7: 03/12/17 08:07 03/12/17 08:07 Labs: Laboratory Results - last 24 hr 03/10/17 03/10/17 03/11/17 16:37 16:39 13:54 WBC RBC Hgb Hct MCV MCH MCHC RDW Plt Count MPV Immature Gran % Seg Neutrophils % Lymphocytes % Monocytes % Eosinophils % Basophils % Neutrophils # Lymphocytes # Monocytes # Eosinophils # Basophils # Sodium Potassium Chloride Carbon Dioxide BUN Creatinine Est GFR ( Amer) Est GFR (Non-Af Amer) BUN/Creatinine Ratio Glucose Calculated Osmolality Calcium Total Bilirubin AST ALT Alkaline Phosphatase Serum Total Protein Albumin Globulin Albumin/Globulin Ratio Vancomycin Trough T.pallidum Ab Interpret NEGATIVE Chlamy pneumoniae PCR Not Detected Adenovirus (PCR) Not Detected B. pertussis DNA (PCR) Not Detected Coronavirus OC43 (PCR) Not Detected Coronavirus HKU1 (PCR) Not Detected Coronavirus 229E (PCR) Not Detected Coronavirus NL63 (PCR) Not Detected EBV Capsid Ag IgM Ab Negative Human Metapneumovir PCR Not Detected Influenza A (H1) PCR Not Detected Influ A (H1N1/09) PCR Not Detected Influenza A (H3) PCR Not Detected Influenza A Untype (PCR) Not Detected Influenza Type B (PCR) Not Detected M.pneumoniae DNA (PCR) Not Detected Parainfluenza 1 (PCR) Not Detected Parainfluenza 2 (PCR) Not Detected Parainfluenza 3 (PCR) Not Detected Parainfluenza 4 (PCR) Not Detected RSV (PCR) Not Detected Entero/Rhino (PCR) Not Detected 03/11/17 03/12/17 03/12/17 21:53 08:07 08:07 WBC 9.8 RBC 3.60 L Hgb 10.4 L Hct 31.0 L MCV 86.1 MCH 28.9 MCHC 33.5 RDW 13.7 Plt Count 177 MPV 11.2 Immature Gran % 0.5 Seg Neutrophils % 79.1 Lymphocytes % 11.1 Monocytes % 8.3 Eosinophils % 0.8 Basophils % 0.2 Neutrophils # 7.7 Lymphocytes # 1.1 Monocytes # 0.8 Eosinophils # 0.1 Basophils # 0.0 Sodium 141 Potassium 3.3 L Chloride 113 H Carbon Dioxide 23 BUN 4 L Creatinine 0.64 Est GFR ( Amer) > 60 Est GFR (Non-Af Amer) > 60 BUN/Creatinine Ratio 6 Glucose 95 Calculated Osmolality 289 Calcium 8.6 Total Bilirubin 0.7 AST 52 H ALT 19 Alkaline Phosphatase 90 Serum Total Protein 6.2 Albumin 2.7 L Globulin 3.5 Albumin/Globulin Ratio 0.8 L Vancomycin Trough 5.1 L T.pallidum Ab Interpret Chlamy pneumoniae PCR Adenovirus (PCR) B. pertussis DNA (PCR) Coronavirus OC43 (PCR) Coronavirus HKU1 (PCR) Coronavirus 229E (PCR) Coronavirus NL63 (PCR) EBV Capsid Ag IgM Ab Human Metapneumovir PCR Influenza A (H1) PCR Influ A (H1N1/09) PCR Influenza A (H3) PCR Influenza A Untype (PCR) Influenza Type B (PCR) M.pneumoniae DNA (PCR) Parainfluenza 1 (PCR) Parainfluenza 2 (PCR) Parainfluenza 3 (PCR) Parainfluenza 4 (PCR) RSV (PCR) Entero/Rhino (PCR) Cultures: Cultures 03/11/17 Unknown Acid Fast Stain - Final Right Axilla 03/10/17 16:00 Wound Culture - Preliminary Groin No pathogens isolated. 03/10/17 15:00 Urine Culture - Final Urine,Clean Catch No growth. 03/10/17 16:00 Wound Culture - Preliminary Mouth No pathogens isolated. Serology 03/11/17 03/10/17 03/10/17 Range/Units 13:54 16:39 16:39 Urine Color (Yellow) Urine Clarity (Clear) Urine pH (5.0-8.0) pH Units Ur Specific [place] (1.010-1.025) Urine Protein (Neg-Trace) mg/dL Urine Glucose (UA) (Normal) mg/dL Urine Ketones (Negative) mg/dL Urine Blood (Negative) Urine Nitrite (Negative) Urine Bilirubin (Negative) Urine Urobilinogen (Normal) mg/dL Ur Leukocyte Esterase (Negative) Urine Microscopic RBC (0-3) per hpf Urine Microscopic WBC (0-3) per hpf Ur Squamous Epith Cells (None-Few) per lpf Urine Bacteria (None-Few) per hpf Hyaline Casts (None-Few) per lpf Ur Culture Indicated? (NO) Urine Test (Negative) T.pallidum Ab Interpret (NEGATIVE) Chlamy pneumoniae PCR Not Detected (Not Detect) Adenovirus (PCR) Not Detected (Not Detect) B. pertussis DNA (PCR) Not Detected (Not Detect) Coronavirus OC43 (PCR) Not Detected (Not Detect) Coronavirus HKU1 (PCR) Not Detected (Not Detect) Coronavirus 229E (PCR) Not Detected (Not Detect) Coronavirus NL63 (PCR) Not Detected (Not Detect) EBV Capsid Ag IgM Ab Negative (Negative) HIV Ag/Ab Combo Qual (Nonreactive) Human Metapneumovir PCR Not Detected (Not Detect) Infectious [place] Assay Negative (Negative) Influenza A (H1) PCR Not Detected (Not Detect) Influ A (H1N1/09) PCR Not Detected (Not Detect) Influenza A (H3) PCR Not Detected (Not Detect) Influenza A Untype (PCR) Not Detected (Not Detect) Influenza Type B (PCR) Not Detected (Not Detect) M.pneumoniae DNA (PCR) Not Detected (Not Detect) Parainfluenza 1 (PCR) Not Detected (Not Detect) Parainfluenza 2 (PCR) Not Detected (Not Detect) Parainfluenza 3 (PCR) Not Detected (Not Detect) Parainfluenza 4 (PCR) Not Detected (Not Detect) RSV (PCR) Not Detected (Not Detect) Entero/Rhino (PCR) Not Detected (Not Detect) 03/10/17 03/10/17 03/10/17 Range/Units 16:37 16:37 15:00 Urine Color Dark Yellow (Yellow) Urine Clarity Cloudy A (Clear) Urine pH 6.0 (5.0-8.0) pH Units Ur Specific [place] > 1.030 H (1.010-1.025) Urine Protein 30 H (Neg-Trace) mg/dL Urine Glucose (UA) Normal (Normal) mg/dL Urine Ketones 80 H (Negative) mg/dL Urine Blood Negative (Negative) Urine Nitrite Negative (Negative) Urine Bilirubin Small H (Negative) Urine Urobilinogen Normal (Normal) mg/dL Ur Leukocyte Esterase Small H (Negative) Urine Microscopic RBC 5-15 H (0-3) per hpf Urine Microscopic WBC 15-30 H (0-3) per hpf Ur Squamous Epith Cells Many H (None-Few) per lpf Urine Bacteria None Seen (None-Few) per hpf Hyaline Casts Few (None-Few) per lpf Ur Culture Indicated? YES A (NO) Urine Test (Negative) T.pallidum Ab Interpret NEGATIVE (NEGATIVE) Chlamy pneumoniae PCR (Not Detect) Adenovirus (PCR) (Not Detect) B. pertussis DNA (PCR) (Not Detect) Coronavirus OC43 (PCR) (Not Detect) Coronavirus HKU1 (PCR) (Not Detect) Coronavirus 229E (PCR) (Not Detect) Coronavirus NL63 (PCR) (Not Detect) EBV Capsid Ag IgM Ab (Negative) HIV Ag/Ab Combo Qual Nonreactive (Nonreactive) Human Metapneumovir PCR (Not Detect) Infectious [place] Assay (Negative) Influenza A (H1) PCR (Not Detect) Influ A (H1N1/09) PCR (Not Detect) Influenza A (H3) PCR (Not Detect) Influenza A Untype (PCR) (Not Detect) Influenza Type B (PCR) (Not Detect) M.pneumoniae DNA (PCR) (Not Detect) Parainfluenza 1 (PCR) (Not Detect) Parainfluenza 2 (PCR) (Not Detect) Parainfluenza 3 (PCR) (Not Detect) Parainfluenza 4 (PCR) (Not Detect) RSV (PCR) (Not Detect) Entero/Rhino (PCR) (Not Detect) 03/10/17 Range/Units 15:00 Urine Color (Yellow) Urine Clarity (Clear) Urine pH (5.0-8.0) pH Units Ur Specific [place] (1.010-1.025) Urine Protein (Neg-Trace) mg/dL Urine Glucose (UA) (Normal) mg/dL Urine Ketones (Negative) mg/dL Urine Blood (Negative) Urine Nitrite (Negative) Urine Bilirubin (Negative) Urine Urobilinogen (Normal) mg/dL Ur Leukocyte Esterase (Negative) Urine Microscopic RBC (0-3) per hpf Urine Microscopic WBC (0-3) per hpf Ur Squamous Epith Cells (None-Few) per lpf Urine Bacteria (None-Few) per hpf Hyaline Casts (None-Few) per lpf Ur Culture Indicated? (NO) Urine Test Negative (Negative) T.pallidum Ab Interpret (NEGATIVE) Chlamy pneumoniae PCR (Not Detect) Adenovirus (PCR) (Not Detect) B. pertussis DNA (PCR) (Not Detect) Coronavirus OC43 (PCR) (Not Detect) Coronavirus HKU1 (PCR) (Not Detect) Coronavirus 229E (PCR) (Not Detect) Coronavirus NL63 (PCR) (Not Detect) EBV Capsid Ag IgM Ab (Negative) HIV Ag/Ab Combo Qual (Nonreactive) Human Metapneumovir PCR (Not Detect) Infectious [place] Assay (Negative) Influenza A (H1) PCR (Not Detect) Influ A (H1N1/09) PCR (Not Detect) Influenza A (H3) PCR (Not Detect) Influenza A Untype (PCR) (Not Detect) Influenza Type B (PCR) (Not Detect) M.pneumoniae DNA (PCR) (Not Detect) Parainfluenza 1 (PCR) (Not Detect) Parainfluenza 2 (PCR) (Not Detect) Parainfluenza 3 (PCR) (Not Detect) Parainfluenza 4 (PCR) (Not Detect) RSV (PCR) (Not Detect) Entero/Rhino (PCR) (Not Detect) Exam - Constitutional Vitals: Temp Pulse Resp BP Pulse Ox 99.0 F 79 20 119/82 95 03/12/17 10:35 03/12/17 10:35 03/12/17 10:35 03/12/17 10:35 03/12/17 10:35 General appearance: average body habitus, cooperative, no acute distress - Head Head exam: Present: atraumatic, normal inspection, normocephalic - Eye Eye exam: Present: EOMI, normal appearance, PERRL Pupils: Present: normal accommodation - ENT ENT exam: Present: mucous membranes moist Additional comments: Multiple ulcers noted to the buccal mucosa and posterior pharynx and inner lips. - Neck Neck exam: Present: normal inspection. Absent: lymphadenopathy - Respiratory Respiratory exam: Present: CTAB. Absent: rales, respiratory distress, rhonchi, wheezes - Cardiovascular Cardiovascular exam: Present: RRR, +S1, +S2 - GI/Abdominal GI/Abdominal exam: Present: normal bowel sounds, soft. Absent: distended, tenderness - Extremities Exam Extremities exam: Absent: joint swelling, pedal edema, tenderness Additional comments: Non-raised, non-tender lesions noted to the anterior shins bilaterally and the right ankle. - Back Exam Back exam: Present: rash noted (Folliculitis rash) - Neurological Exam Neurological exam: Present: alert, oriented X3, no focal deficits - Psychiatric Psychiatric exam: Present: normal affect, normal mood - Skin Skin exam: Present: dry, intact, normal color, rash (Folliculitis rash noted to the back, bilateral axilla), warm Consult Discharge Plan - Plan Referrals: Dinorah Mesa MD [Primary Care Provider] - 03/22/17 10:15 am
[2017-03-13] MEDS: Piperacillin/Tazobactam 3.375 GM in D5% in Water (Mini-Bag+) 100 ML IVPB SCH ×3 (00:55→17:22)
[2017-03-13] MEDS: *HR* Heparin 5,000 UNIT/ML VIAL SQ SCH ×3 (00:56→17:29)
[2017-03-13] MEDS: Ketorolac 15 MG/ML VIAL IVP SCH ×4 (00:56→17:28)
[2017-03-13] MEDS: *HR* HYDROcodone/Acet 5/325 mg TABLET PO PRN ×2 (00:57→06:36)
[2017-03-13] MEDS: *HR* Morphine 2 MG/ML SYRINGE IVP PRN (03:57)
[2017-03-13] MEDS: 0.9 % Sodium Chloride 1,000 ML IVC SCH ×4 (04:04→20:37)
[2017-03-13] MEDS: Vancomycin 1,250 MG in D5% in Water 250 ML IVPB SCH (04:05)
[2017-03-13 06:39] LABS: Basophils % 0.3 %; Eosinophils # 0.1 K/mcL (0.0-0.6); Hematocrit 29.9 % (35.3-44.9); Hemoglobin 9.8 g/dL (11.5-15.4); Immature Granulocytes % 0.5 % (0-4); Lymphocytes # 1.3 K/mcL (0.6-4.6); Mean Corpuscular HGB Conc 32.8 g/dL (31.6-35.5); Mean Corpuscular Hemoglobin 27.8 pg (28.0-33.3); Mean Corpuscular Volume 84.9 fL (83.0-100.0); Mean Platelet Volume 10.6 fL (9.4-12.4); Monocytes # 0.5 K/mcL (0.0-1.3); Monocytes % 8.8 %; Neutrophils # 4.2 K/mcL (1.6-8.9); Platelet Count 179 K/mcL (140-400); Red Blood Count 3.52 M/mcL (3.82-4.97); Red Cell Distribution Width 13.5 % (11.5-14.5); Segmented Neutrophils % 67.4 %
[2017-03-13 06:56] LABS: Alanine Aminotransferase 19 Units/L (0-55); Albumin 2.5 g/dL (3.5-5.0); Albumin/Globulin Ratio 0.7 (1.1-2.2); Alkaline Phosphatase 86 Units/L (38-126); Aspartate Amino Transferase 20 Units/L (5-34); BUN/Creatinine Ratio 3 (6-26); Bilirubin,Total 0.6 mg/dL (0.2-1.2); Calcium 8.5 mg/dL (8.6-10.8); Carbon Dioxide 22 mEq/L (19-29); Chloride 114 mEq/L (98-109); Globulin 3.4 g/dL (2.4-3.5); Glucose 109 mg/dL (70-99); Osmolality,Calculated 287 (280-300); Potassium 3.3 mEq/L (3.5-4.5); Sodium 140 mEq/L (136-145); Total Protein 5.9 g/dL (6.0-8.3); eGFR For African Americans > 60 (> 60); eGFR For Non-African Americans > 60 (> 60)
[2017-03-13 06:59] LABS: Blood Urea Nitrogen 2 mg/dL (7-20)
[2017-03-13 07:18] LABS: Procalcitonin 0.27 ng/mL (<=0.10)
[2017-03-13 07:30] LABS: Parvovirus B19, IgG 4.04 IV (<=0.89); Parvovirus B19, IgM 0.14 IV (<=0.89)
[2017-03-13] MEDS: MetroNIDAZOLE Vaginal Gel VG SCH ×2 (10:03→20:39)
[2017-03-13] MEDS: BuPROPion XL (24 HR) 150 MG TABLET PO SCH (10:08)
[2017-03-13] MEDS: Topiramate 25 MG TABLET PO SCH (10:08)
[2017-03-13] MEDS: Lidocaine Viscous Oral Soln 15 ML SOLUTION MM PRN ×2 (10:09→17:17)
[2017-03-13] MEDS: Pantoprazole 40 MG VIAL IVP SCH (10:10)
[2017-03-13] MEDS: ETHINYL ESTRADIOL PO SCH (10:12)
[2017-03-13] MEDS: DROSPIRENONE PO SCH (10:12)
[2017-03-13] MEDS: Magic Mouthwash 10 ML UD Cup PO SCH ×3 (10:12→17:47)
[2017-03-13] MEDS: Vancomycin 1,000 MG in D5% in Water 250 ML IVPB SCH ×2 (13:23→20:38)
--- NOTE | 2017-03-13 16:39 | Internal Med Progress Note ---
Date of Encounter: 03/13/17 Time of Encounter: 16:33 - Assessment and plan (1) Sepsis Current Visit: Yes Status: Acute Assessment and plan: Afebrile, Tylenol prn No leukocytosis. ESR of 54 and CRP of [address] revealed bilateral axillary skin thickening suggestive of cellulitis CT abdomen and pelvis pending Continue vancomycin and Zosyn (day 2 ) Wound cultures negative, Blood cultures showed no growth 03/13/2017 CT abdomen and pelvis: Minimal free fluid, 3 mm nodule in the lung. Denies fever, shortness of breath, abdominal pain. WBC trending down. Noted that she has a hypokalemia: K replaced. Stable blood pressure/respiratory rate. Plan: Since she is responding well to present antibiotic regimen, we will continue same for another 24/48 hours. The reason we continued Zosyn for status co . Depending on the culture results we will decide to discontinue antibiotics with the help of infectious disease on Wednesday. Qualifiers: Sepsis type: sepsis due to unspecified organism Qualified Code(s): A41.9 - Sepsis, unspecified organism (2) Mouth sores Current Visit: Yes Status: Acute Assessment and plan: Patient has multiple mouth sores. Some of them are painful. Recommended lidocaine ointment/Gel. (3) Folliculitis Current Visit: Yes Status: Acute Assessment and plan: Dermatology and IV following. She was started on oral contraceptives 4 weeks prior to the onset of symptoms. ID recommends continuing Vancomycin. Continue Zosyn at this time. Can switch to PO bactrim upon discharge. Possible sarcoidosis, CO[place] Level pending Parvo, EBV, CMV, coxscakie are pending Lymph node biopsy results pending. 03/13/2017 Lymph node culture: Negative Blood culture: Negative Viral cultures, lymph node biopsy results pending - Subjective Interval history: CN examined. Chart reviewed. Patient still complains of soreness in the mouth. He also complains of some sore and itchy in her private part. Patient denies chest pain, shortness of breath, dizziness, abdominal pain or diarrhea. - Constitutional Vitals: Temp Pulse Resp BP Pulse Ox 98.7 F 84 18 122/82 100 03/13/17 14:50 03/13/17 14:50 03/13/17 14:50 03/13/17 14:50 03/13/17 14:50 General appearance: Present: cooperative, A&O X 3, pleasant, no acute distress, answers questions appropriately - Head Head exam: Present: atraumatic, normocephalic - Eye Eye exam: Present: PERRL, conjuntiva pink, sclera anicteric Pupils: Present: PERRL - Neck Neck exam general surgery: Present: supple, trachea midline. Absent: lymphadenopathy - Respiratory Respiratory exam: Present: CTAB. Absent: accessory muscle use, rales, rhonchi, wheezes - Cardiovascular Cardiovascular exam: Present: RRR, +S1, +S2. Absent: diastolic murmur, gallop, rubs, systolic murmur - GI/Abdominal GI/Abdominal exam: Present: normal bowel sounds, soft, no peritoneal signs. Absent: distended, tenderness - Extremities Exam Extremities exam: Present: warm, radial pulses palpable and symetrical. Absent : calf tenderness, cyanotic, pedal edema - Neurological Exam Neurological exam: Present: CN II-XII intact, oriented X3, no focal deficits. Absent: pronater drift, facial droop, speech deficit - Skin Skin exam: Present: dry, intact Internal Medicine: Result - Labs CBC & Chem 7: 03/13/17 06:01 03/13/17 06:01 Labs: Short CBC 03/13/17 Range/Units 06:01 WBC 6.2 (4.3-11.1) K/mcL Hgb 9.8 L (11.5-15.4) g/dL Hct 29.9 L (35.3-44.9) % Plt Count 179 (140-400) K/mcL Neutrophils # 4.2 (1.6-8.9) K/mcL BMP 03/13/17 06:01 Sodium 140 Potassium 3.3 L Chloride 114 H Carbon Dioxide 22 BUN 2 L Creatinine 0.62 Glucose 109 H Calcium 8.5 L Liver Function 03/13/17 Range/Units 06:01 Total Bilirubin 0.6 (0.2-1.2) mg/dL AST 20 (5-34) Units/L ALT 19 (0-55) Units/L Alkaline Phosphatase 86 (38-126) Units/L Albumin 2.5 L (3.5-5.0) g/dL - ABG Interpretation ABG results: PT/INR, D-dimer PT 12.4 Seconds (9.4-12.1) H 03/10/17 11:51 Consult Discharge Plan - Plan Referrals: Dinorah Mesa MD [Primary Care Provider] - 03/22/17 10:15 am
[2017-03-14] MEDS: Ketorolac 15 MG/ML VIAL IVP SCH ×4 (00:20→19:01)
[2017-03-14] MEDS: Piperacillin/Tazobactam 3.375 GM in D5% in Water (Mini-Bag+) 100 ML IVPB SCH ×3 (00:21→16:46)
[2017-03-14] MEDS: *HR* Heparin 5,000 UNIT/ML VIAL SQ SCH ×3 (00:21→16:47)
[2017-03-14] MEDS: Vancomycin 1,000 MG in D5% in Water 250 ML IVPB SCH ×2 (04:38→13:00)
[2017-03-14] MEDS ORDERED: Lidocaine Viscous Oral Soln 15 ML SOLUTION MM SCH (09:00)
[2017-03-14] MEDS: Magic Mouthwash 10 ML UD Cup PO SCH ×3 (09:31→16:46)
[2017-03-14] MEDS: Topiramate 25 MG TABLET PO SCH (09:32)
[2017-03-14] MEDS: BuPROPion XL (24 HR) 150 MG TABLET PO SCH (09:32)
[2017-03-14] MEDS: Pantoprazole 40 MG VIAL IVP SCH (09:33)
[2017-03-14] MEDS: ETHINYL ESTRADIOL PO SCH (09:35)
[2017-03-14] MEDS: DROSPIRENONE PO SCH (09:35)
[2017-03-14] MEDS: MetroNIDAZOLE Vaginal Gel VG SCH ×2 (09:36→20:33)
[2017-03-14] MEDS ORDERED: Lidocaine Viscous Oral Soln 15 ML SOLUTION MM PRN (10:33)
[2017-03-14 12:18] LABS: Alanine Aminotransferase 16 Units/L (0-55); Albumin 3.2 g/dL (3.5-5.0); Albumin/Globulin Ratio 0.8 (1.1-2.2); Alkaline Phosphatase 92 Units/L (38-126); Aspartate Amino Transferase 13 Units/L (5-34); BUN/Creatinine Ratio 4 (6-26); Bilirubin,Total 0.7 mg/dL (0.2-1.2); Blood Urea Nitrogen 3 mg/dL (7-20); Calcium 9.5 mg/dL (8.6-10.8); Carbon Dioxide 24 mEq/L (19-29); Chloride 112 mEq/L (98-109); Glucose 99 mg/dL (70-99); Osmolality,Calculated 291 (280-300); Potassium 3.9 mEq/L (3.5-4.5); Sodium 142 mEq/L (136-145); Total Protein 7.2 g/dL (6.0-8.3); eGFR For African Americans > 60 (> 60); eGFR For Non-African Americans > 60 (> 60)
[2017-03-14] MEDS: 0.9 % Sodium Chloride 1,000 ML IVC SCH (12:59)
[2017-03-14] MEDS ORDERED: Vancomycin 1 EACH in D5% in Water 250 ML IVPB SCH (13:00)
[2017-03-14 14:15] LABS: Basophils % 0.4 %; Eosinophils # 0.2 K/mcL (0.0-0.6); Eosinophils % 2.2 %; Hematocrit 35.7 % (35.3-44.9); Hemoglobin 11.9 g/dL (11.5-15.4); Immature Granulocytes % 0.7 % (0-4); Immature Platelets 4.2 % (1.1-6.1); Lymphocytes # 1.1 K/mcL (0.6-4.6); Mean Corpuscular HGB Conc 33.3 g/dL (31.6-35.5); Mean Corpuscular Hemoglobin 28.5 pg (28.0-33.3); Mean Corpuscular Volume 85.4 fL (83.0-100.0); Monocytes # 0.7 K/mcL (0.0-1.3); Monocytes % 8.5 %; Neutrophils # 5.7 K/mcL (1.6-8.9); Platelet Count 294 K/mcL (140-400); Red Blood Count 4.18 M/mcL (3.82-4.97); Red Cell Distribution Width 13.4 % (11.5-14.5); Segmented Neutrophils % 74.2 %
--- NOTE | 2017-03-14 16:06 | Internal Med Progress Note ---
Date of Encounter: 03/14/17 Time of Encounter: 16:03 - Assessment and plan (1) Sepsis Current Visit: Yes Status: Acute Assessment and plan: Afebrile, Tylenol prn No leukocytosis. ESR of 54 and CRP of [address] CT revealed bilateral axillary skin thickening suggestive of cellulitis CT abdomen and pelvis pending Continue vancomycin and Zosyn (day 2 ) Wound cultures negative, Blood cultures showed no growth 03/13/2017 CT abdomen and pelvis: Minimal free fluid, 3 mm nodule in the lung. Denies fever, shortness of breath, abdominal pain. WBC trending down. Noted that she has a hypokalemia: K replaced. Stable blood pressure/respiratory rate. Plan: Since she is responding well to present antibiotic regimen, we will continue same for another 24/48 hours. The reason we continued Zosyn for status co . Depending on the culture results we will decide to discontinue antibiotics with the help of infectious disease on Wednesday. 03/14/2017 No fever in the past 48 hours. We will continue Vanco and Zosyn for now. Will discuss with ID regarding follow-up tomorrow. Qualifiers: Sepsis type: sepsis due to unspecified organism Qualified Code(s): A41.9 - Sepsis, unspecified organism (2) Mouth sores Current Visit: Yes Status: Acute Assessment and plan: Patient has multiple mouth sores. Some of them are painful. Recommended lidocaine ointment/Gel. (3) Folliculitis Current Visit: Yes Status: Acute Assessment and plan: Dermatology and IV following. She was started on oral contraceptives 4 weeks prior to the onset of symptoms. ID recommends continuing Vancomycin. Continue Zosyn at this time. Can switch to PO bactrim upon discharge. Possible sarcoidosis, [place] Level pending Parvo, EBV, CMV, coxscakie are pending Lymph node biopsy results pending. 03/13/2017 Lymph node culture: Negative Blood culture: Negative Viral cultures, lymph node biopsy results pending 03/14/2017 Patient complains of sore in her private area which were ruptured. We will get [employer] evaluation. - Subjective Interval history: Patient examined. Chart reviewed. Patient still complains of soreness in the mouth. He also complains of some sore and itchy in her private part. Patient denies chest pain, shortness of breath, dizziness, abdominal pain or diarrhea. 03/14/2017 Patient examined. chart reviewed. Patient complains regarding ruptured vesicular sore in her private area. she also requests for [employer] evaluation. Patient denies abdominal pain/vomiting/diarrhea/nausea - Constitutional Vitals: Temp Pulse Resp BP Pulse Ox 98.5 F 75 15 135/90 98 03/14/17 15:14 03/14/17 15:14 03/14/17 15:14 03/14/17 15:14 03/14/17 15:14 General appearance: Present: cooperative, A&O X 3, pleasant, no acute distress, answers questions appropriately - Head Head exam: Present: atraumatic, normocephalic - Eye Eye exam: Present: PERRL, conjuntiva pink, sclera anicteric Pupils: Present: PERRL - Neck Neck exam general surgery: Present: supple, trachea midline. Absent: lymphadenopathy - Respiratory Respiratory exam: Present: CTAB. Absent: accessory muscle use, rales, rhonchi, wheezes - Cardiovascular Cardiovascular exam: Present: RRR, +S1, +S2. Absent: diastolic murmur, gallop, rubs, systolic murmur - GI/Abdominal GI/Abdominal exam: Present: normal bowel sounds, soft, no peritoneal signs. Absent: distended, tenderness - Extremities Exam Extremities exam: Present: warm, radial pulses palpable and symetrical. Absent : calf tenderness, cyanotic, pedal edema - Neurological Exam Neurological exam: Present: CN II-XII intact, oriented X3, no focal deficits. Absent: pronater drift, facial droop, speech deficit - Skin Skin exam: Present: dry, intact Internal Medicine: Result - Labs CBC & Chem 7: 03/14/17 13:04 03/14/17 11:57 Labs: Short CBC 03/14/17 Range/Units 13:04 WBC 7.6 (4.3-11.1) K/mcL Hgb 11.9 D (11.5-15.4) g/dL Hct 35.7 (35.3-44.9) % Plt Count 294 D (140-400) K/mcL Neutrophils # 5.7 (1.6-8.9) K/mcL BMP 03/14/17 11:57 Sodium 142 Potassium 3.9 Chloride 112 H Carbon Dioxide 24 BUN 3 L Creatinine 0.80 Glucose 99 Calcium 9.5 Liver Function 03/14/17 Range/Units 11:57 Total Bilirubin 0.7 (0.2-1.2) mg/dL AST 13 (5-34) Units/L ALT 16 (0-55) Units/L Alkaline Phosphatase 92 (38-126) Units/L Albumin 3.2 L D (3.5-5.0) g/dL - ABG Interpretation ABG results: PT/INR, D-dimer PT 12.4 Seconds (9.4-12.1) H 03/10/17 11:51 Consult Discharge Plan - Plan Referrals: Dinorah Mesa MD [Primary Care Provider] - 03/22/17 10:15 am
[2017-03-14] MEDS ORDERED: Vancomycin 1,000 MG in D5% in Water 250 ML IVPB ONE (18:47)
[2017-03-15] MEDS: *HR* Heparin 5,000 UNIT/ML VIAL SQ SCH ×2 (00:28→07:59)
[2017-03-15] MEDS: Piperacillin/Tazobactam 3.375 GM in D5% in Water (Mini-Bag+) 100 ML IVPB SCH ×2 (00:28→07:59)
[2017-03-15] MEDS: Ketorolac 15 MG/ML VIAL IVP SCH (00:28)
[2017-03-15] MEDS: 0.9 % Sodium Chloride 1,000 ML IVC SCH (03:52)
[2017-03-15 04:36] LABS: Basophils % 0.5 %; Eosinophils # 0.2 K/mcL (0.0-0.6); Eosinophils % 3.6 %; Hematocrit 32.5 % (35.3-44.9); Hemoglobin 10.9 g/dL (11.5-15.4); Immature Granulocytes % 0.8 % (0-4); Lymphocytes # 1.5 K/mcL (0.6-4.6); Lymphocytes % 24.2 %; Mean Corpuscular HGB Conc 33.5 g/dL (31.6-35.5); Mean Corpuscular Hemoglobin 28.3 pg (28.0-33.3); Mean Corpuscular Volume 84.4 fL (83.0-100.0); Mean Platelet Volume 10.2 fL (9.4-12.4); Monocytes # 0.7 K/mcL (0.0-1.3); Monocytes % 11.4 %; Neutrophils # 3.6 K/mcL (1.6-8.9); Platelet Count 273 K/mcL (140-400); Red Blood Count 3.85 M/mcL (3.82-4.97); Red Cell Distribution Width 13.3 % (11.5-14.5); Segmented Neutrophils % 59.5 %
[2017-03-15 04:49] LABS: Alanine Aminotransferase 14 Units/L (0-55); Albumin/Globulin Ratio 0.9 (1.1-2.2); Alkaline Phosphatase 75 Units/L (38-126); Aspartate Amino Transferase 12 Units/L (5-34); BUN/Creatinine Ratio 6 (6-26); Bilirubin,Total 0.6 mg/dL (0.2-1.2); Carbon Dioxide 21 mEq/L (19-29); Chloride 112 mEq/L (98-109); Globulin 3.5 g/dL (2.4-3.5); Glucose 100 mg/dL (70-99); Osmolality,Calculated 291 (280-300); Potassium 3.5 mEq/L (3.5-4.5); Sodium 142 mEq/L (136-145); Total Protein 6.5 g/dL (6.0-8.3); eGFR For African Americans > 60 (> 60); eGFR For Non-African Americans > 60 (> 60)
[2017-03-15 04:54] LABS: Blood Urea Nitrogen 5 mg/dL (7-20)
[2017-03-15] MEDS: BuPROPion XL (24 HR) 150 MG TABLET PO SCH (07:57)
[2017-03-15] MEDS: Topiramate 25 MG TABLET PO SCH (07:58)
[2017-03-15] MEDS: Magic Mouthwash 10 ML UD Cup PO SCH ×2 (07:59→11:37)
[2017-03-15] MEDS: MetroNIDAZOLE Vaginal Gel VG SCH (07:59)
[2017-03-15] MEDS: Pantoprazole 40 MG VIAL IVP SCH (07:59)
[2017-03-15] MEDS: ETHINYL ESTRADIOL PO SCH (08:00)
[2017-03-15] MEDS: DROSPIRENONE PO SCH (08:00)
--- NOTE | 2017-03-15 08:13 | OB/GYN Consult Note ---
Date of Encounter: 03/15/17 Time of Encounter: 08:10 Assessment and Plan (1) Vulvar lesion Current Visit: Yes Status: Acute I discussed the differential with the patient and the team including syphilis, HIV, Herpes, and Chancroid Her RPR and HIV labs are negative, I have ordered HSV labs, Chancroid would be very painful and suggested in the presence of normal syphilis and Herpes labs. However highly unlikely at this point. I've asked her to give us a call in the office for results and follow up. History of Present Illness Consult date: 03/14/17 Reason for consult: other History of present illness: 26 y/o presented to the Hospital with vulvar lesions, axillary lesions and lesions on the rinaldi. She reports that this has been on for the past 1-2 weeks. The Hospitalist called me to see if there was a cement finisher helper etiology to the lesions that she is currently having. Multiple disciplines are involved including Dermatology. Biopsies have been taken. She does not report burning pain, denies vag discharge or itching. She denies AUB, pelvic pain, or any other issues. Past Med Surg Social Fam HX - Past Medical History Medical history: migraine Psychiatric history: anxiety, depression - Past Surgical History Surgical History: no surgical history, other (bilateral tympanostomy as a child) - Social History Smoking Status: Never smoker Smokeless Tobacco Status: No Alcohol use: unknown Drug use: none - Family History Mother Race: Family Member Ethnicity: Non- Living Status: Still Living Hx Family Cardiac Disorders: Yes Hx Family Respiratory Disorders: No Hx Family Cancer: Yes (Colon, uterine, melanoma) Hx Family GI Disorders: No Hx Family Endocrine Disorder: No Hx Family Neuromuscular Disorders: No Hx Family Neurologic Disorders: No Hx Family HEENT Disorders: No Hx Family Autoimmune Disorders: No Father Race: Family Member Ethnicity: Non- Living Status: Still Living Hx Family Cardiac Disorders: Yes (HD) Brother Race: Family Member Ethnicity: Non- Living Status: Still Living Hx Family Medical Disorders: No Medications and Allergies BuPROPion XL (24 HR) [Wellbutrin XL] 150 mg PO DAILY 02/09/16 [History] Rizatriptan Benzoate [Maxalt] 10 mg PO DAILY PRN 10/09/16 [History] Ethinyl Estradiol/Drospirenone [Debbie 28 Tablet] 1 tab PO DAILY 03/10/17 [History] Topiramate [Topamax] 50 mg PO DAILY 03/10/17 [History] Allergies No Known Allergies Allergy (Verified 03/10/17 08:05) Review of Systems All Systems: reviewed and no additional remarkable complaints except as stated Exam - Vital Signs Vital signs: Initial Vital Signs Temp Pulse Resp BP Pulse Ox 98.2 F 115 18 138/85 99 03/10/17 08:01 03/10/17 08:01 03/10/17 08:01 03/10/17 08:01 03/10/17 08:01 - Constitutional Constitutional: well developed - Vulva Vulva: bilateral: ulceration Results Result Diagrams: 03/15/17 04:09 03/15/17 04:09 Abnormal lab results Hgb 10.9 g/dL (11.5-15.4) L 03/15/17 04:09 Hct 32.5 % (35.3-44.9) L 03/15/17 04:09 ESR 54 mm/hr (0-15) H 03/10/17 16:37 PT 12.4 Seconds (9.4-12.1) H 03/10/17 11:51 APTT 25.1 Seconds (26.0-36.0) L 03/10/17 11:51 Chloride 112 mEq/L (98-109) H 03/15/17 04:09 BUN 5 mg/dL (7-20) L 03/15/17 04:09 Glucose 100 mg/dL (70-99) H 03/15/17 04:09 C-Reactive Protein 170 mg/L (Less than 5) H 03/10/17 16:37 B-Natriuretic Peptide 101 pg/mL (0-100) H 03/11/17 04:47 Albumin 3.0 g/dL (3.5-5.0) L 03/15/17 04:09 Albumin/Globulin Ratio 0.9 (1.1-2.2) L 03/15/17 04:09 Procalcitonin 0.27 ng/mL (<=0.10) H 03/10/17 16:37 Urine Clarity Cloudy (Clear) A 03/10/17 15:00 Ur Specific [place] > 1.030 (1.010-1.025) H 03/10/17 15:00 Urine Protein 30 mg/dL (Neg-Trace) H 03/10/17 15:00 Urine Ketones 80 mg/dL (Negative) H 03/10/17 15:00 Urine Bilirubin Small (Negative) H 03/10/17 15:00 Ur Leukocyte Esterase Small (Negative) H 03/10/17 15:00 Urine Microscopic RBC 5-15 per hpf (0-3) H 03/10/17 15:00 Urine Microscopic WBC 15-30 per hpf (0-3) H 03/10/17 15:00 Ur Squamous Epith Cells Many per lpf (None-Few) H 03/10/17 15:00 Ur Culture Indicated? YES (NO) A 03/10/17 15:00 Vancomycin Trough 22.5 mcg/mL (10-20) H* 03/14/17 11:27 Parvovirus B19 IgG Ab 4.04 IV (<=0.89) H 03/10/17 16:39 All other labs normal. Consult Discharge Plan - Plan Referrals: Dinorah Mesa MD [Primary Care Provider] - 03/22/17 10:15 am
[2017-03-15 08:34] LABS: ANA IgG IFA Titer <1:40 (<1:40); ANA IgG by ELISA DETECTED (None Detected)
[2017-03-15 08:35] LABS: Cytomegalovirus DNA (PCR) NOT DETECTED
[2017-03-15 08:35] LABS: Cytomegalovirus DNA (PCR) NOT DETECTED
--- NOTE | 2017-03-15 08:55 | Rheumatology Consult Note ---
<Demetria Colindres - Last Filed: 03/15/17 13:40> Date of Encounter: 03/15/17 Time of Encounter: 08:55 Rheumatology Assess and Plan (1) Sepsis Current Visit: Yes Status: Resolved Resolved after antibiotics initiated. Vital signs today within normal limits. Patient still on zosyn, vancomycin on hold chest CT showed symmetric bilateral axillary skin thickening, mild subcutaneous inflammatory stranding. CT abdomen/pelvis showed minimal free pelvic fluid, presacral stranding blood cultures x2 no growth. right axilla tissue culture positive for staph lugdunensis Anaerobic cultures and acid fast stain negative. CRP: 170 ESR 54 RF, CCP, SOLEDAD titer negative. Infectious serology unremarkable. Plan: still unclear etiology at this time. Ok to discharge home from rheumatology standpoint. Will follow up outpatient in a few weeks. Vasculitis currently in the differential, will continue workup outpatient. Qualifiers: Sepsis type: sepsis due to unspecified organism Qualified Code(s): A41.9 - Sepsis, unspecified organism (2) Ulceration, oral mucosa Current Visit: Yes Status: Acute as above (3) Vulvar lesion Current Visit: Yes Status: Acute as above Rheumatology HPI Consult date: 03/15/17 Requesting physician: Zachary Hassan Consult reason: oral and genital lesions, Chief complaint: sepsis History of present illness: HPI: Ms. Broussard is a 26 year old female with PMHx of Migraine headaches, anxiety, depression. She is status post vaginal delivery about 3 months ago. She presented to [facility] on 03/10/17 with complaints of "lumps" on her axilla bilaterally, and groin area that caused her a significant amount of pain. She first noticed a small lump on her left axilla on Thursday 03/08. On evening of 03/09 , she developed a fever of 102.1, which lasted for about a day before she took tylenol. On morning of 03/09, she noticed additional lumps on her right axilla and on her labial area. She also noted small bumps on chest, down her back, and her neck. She states this never happened before. She does report recent sick contacts. Her mother had bronchitis/sinusitis, and her children and fiance had cough/runny nose. Of note, her mother in law recently returned from a trip to [facility] about 5 weeks ago. Upon arrival to ED, Patient met sepsis criteria (fever, tachycardia, elevated WBC) and was admitted for further workup. Patient treated with vancomycin and zosyn. ROS: admits to fever and chills. No nausea, vomiting. She reports loose stools since being on antibiotics. No dry eyes. Reports dry mouth that started this week. She denies shortness of breath. Denies family history of chrons disease or ulcerative colitis. She does report that her mother has IBS. She denies dark stools or blood in her stools. She denies no new skin findings other than what is described above. she denies hematuria. SHe admits to having joint aches, particularly in her hips and neck area when she had a fever, but this has since resolved. Prior workup: tissue culture from right axilla grew staph lugdunensis, acid fast stain negative. Wound culture from mouth: no pathogens were isolated. anaerobic culture from groin: culture present, no anaerobic growth present. Blood cultures negative. CRP: 170, ESR 54. RF, CCP, SOLEDAD titer negative. Infectious serology unremarkable Past Med Surg Social Fam HX - Past Medical History Medical history: migraine Psychiatric history: anxiety, depression - Past Surgical History Surgical History: no surgical history, other (bilateral tympanostomy as a child) - Social History Smoking Status: Never smoker Smokeless Tobacco Status: No Alcohol use: unknown Drug use: none - Family History Mother Race: Family Member Ethnicity: Non- Living Status: Still Living Hx Family Cardiac Disorders: Yes Hx Family Respiratory Disorders: No Hx Family Cancer: Yes (Colon, uterine, melanoma) Hx Family GI Disorders: No Hx Family Endocrine Disorder: No Hx Family Neuromuscular Disorders: No Hx Family Neurologic Disorders: No Hx Family HEENT Disorders: No Hx Family Autoimmune Disorders: No Father Race: Family Member Ethnicity: Non- Living Status: Still Living Hx Family Cardiac Disorders: Yes (HD) Brother Race: Family Member Ethnicity: Non- Living Status: Still Living Hx Family Medical Disorders: No Medications and Allergies BuPROPion XL (24 HR) [Wellbutrin Xl] 150 mg PO DAILY 02/09/16 [History] Rizatriptan Benzoate [Maxalt] 10 mg PO DAILY PRN 10/09/16 [History] Ethinyl Estradiol/Drospirenone [Debbie 28 Tablet] 1 tab PO DAILY 03/10/17 [History] Topiramate [Topamax] 50 mg PO DAILY 03/10/17 [History] Acetaminophen [Tylenol] 650 mg PO Q6HR PRN tab 03/15/17 [Rx] cephALEXin [Keflex] 500 mg PO QID #20 capsule 03/15/17 [Rx] Allergies No Known Allergies Allergy (Verified 03/10/17 08:05) All Systems Review: A 10-system review of systems was performed and is negative for pertinent findings except as documented above in the HPI. Rheumatology Exam Vital Signs, Last 4 Hours Temp Pulse Resp BP Pulse Ox 03/15/17 07:45 98.2 F 79 18 125/89 96 Exam: General: Alert and oriented x3. Patient is comfortably sitting up in bed, in no apparent distress. HEENT: atraumatic, normocephalic, mucous membranes moist, dentition intact. Pupils equally round and reactive to light. no supraclavicular, submandibular, pre auricular, post auricular, or occipital lymphadenopathy noted. sore noted on mucosa on left side of lower lip. A small area of swelling noted in the midline area under the tongue. Lungs: Clear to auscultation bilaterally, no rales, wheezes, or rhonchi noted. CV: regular rate and rhythm. Very mild 1/6 systolic murmur noted. Abdomen: soft, non distended, nontender to palpation, positive bowel sounds. No hepatomegaly or splenomegaly noted. Neuro:Cranial Nerves 2-12 intact, no focal deficits noted. Normal gait. Cerebellar function appears normal. Patellar, achilles, biceps reflexes +2/4 bilaterally. Muscle strength +5/5 bilaterally. Extremities: no cyanosis, edema, or clubbing noted. MSK: no joint pain, crepitus, joint erythema or joint swellling noted on exam. Psych: normal affect, normal mood. Skin: Areas of red and swollen skin noted in bilateral axillary areas. She also has a nodular appearing lesion in the inner fold of her right labia majora. erythematous/purple circumscribed area on anterior rinaldi bilaterallly (one on each rinaldi). Rheumatology Results 03/15/17 04:09 03/15/17 04:09 Immunology Rheumatoid Factor < 15 IU/mL (0-29) 03/10/17 16:37 Cycl Citrul Peptide IgG 7 Units (0-19) 03/10/17 16:37 SOLEDAD Screen DETECTED (None Detected) A 03/10/17 16:37 SOLEDAD Titer <1:40 (<1:40) 03/10/17 16:37 Acetylchol Rcpt Block Ab 20 % (0-26) 03/11/17 08:38 Acetylchol Rcpt Bind Ab 0.0 nmol/L (0.0-0.4) 03/11/17 08:38 All other labs normal. Consult Discharge Plan - Plan Additional Instructions: Continue taking Keflex for 5 days Scheduled follow-up appointment with PCP, stock control clerk, MOLDING PROCESS TECHNICIAN, and sales review clerk. Referrals: Laxmi Ryan MD [Non-Partnered Physician] - (Patient has a follow up already made and will be seeing Dr. Ryan next week. Thank you) Dinorah Msea MD [Primary Care Provider] - 03/22/17 10:15 am Melanie Weller MD [Partnered Physician] - (Dr. Weller has made patient aware that the office will call her tomorrow and let her know the date and time of the hospital f/u. Thank you.) Alphonso Mitchell DO [Partnered Physician] - 03/26/17 3:00 pm Prescriptions: cephALEXin [Keflex] 500 mg PO QID #20 capsule <Alphonso Mitchell - Last Filed: 03/15/17 17:48> Date of Encounter: 03/15/17 Rheumatology HPI History of present illness: Ms. Broussard is a 26 year old female All Systems Review: A 10-system review of systems was performed and is negative for pertinent findings except as documented above in the HPI. Rheumatology Results 03/15/17 04:09 03/15/17 04:09 Immunology Rheumatoid Factor < 15 IU/mL (0-29) 03/10/17 16:37 Cycl Citrul Peptide IgG 7 Units (0-19) 03/10/17 16:37 SOLEDAD Screen DETECTED (None Detected) A 03/10/17 16:37 SOLEDAD Titer <1:40 (<1:40) 03/10/17 16:37 Acetylchol Rcpt Block Ab 20 % (0-26) 03/11/17 08:38 Acetylchol Rcpt Bind Ab 0.0 nmol/L (0.0-0.4) 03/11/17 08:38 All other labs normal. - Attending Attestation I examined this patient and my medical decision making was reviewed with the resident physician. I agree with the documented findings, disposition and treatment as described with these exceptions. This patient is a 26 year old female who presents to the hospital with fevers and feeling unwell. Found to have oral ulcerations, skin thickening, erythema overlying shins. No previous history of oral/vaginal lesions. No previous history of red/ painful eye, no history of photophobia. No previous history of similar rash. Culture of lesion positive for staph; has been covered with antibiotics. 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 Fever and leukocytosis has resolved and she clinically feels better. Overall, she has clinically been improving though axillary lesions persist. I did discuss the case with dermatology who is also going to follow-up with her as an outpatient. With the erythema on legs, oral ulcerations and hidradenitis/pustules will need to consider Behcets though would expect that this may be more of a relapsing case. From my standpoint, I would continue to watch clinically to see how she does before considering immunosuppressive treatment. Will follow-up closely within 2 weeks in Rheumatology clinic.
[2017-03-15] MEDS ORDERED: Vancomycin 1,000 MG in D5% in Water 250 ML IVPB SCH ×2 (09:00→12:00)
--- NOTE | 2017-03-15 11:49 | Infectious Disease Progress No ---
Date of Encounter: 03/15/17 Time of Encounter: 09:50 - Assessment and Plan (1) Sepsis Current Visit: Yes Status: Acute Patient still meets SIRS criteria with Tachycardia, fever and leukocytosis. Tmax 102.9 WBC are still elevated at 13.0 this is down from 13.8 yesterday. Wound cultures from the mouth and groin collected on 03/10/17 show no growth to date. I discussed blood cultures with micro. Preliminarily no growth at this time from blood cultures collected on 03/10/17. inflammatory markers are elevated with ESR of 54 and CRP of 170. RF was negative. SOLEDAD pending HIV was negative. Other viral tests are pending. UA shows small LE,WBC, and RBC. However she denies Lower urinary tact symptoms. CT of the chest with contrast reveals: "Symmetric bilateral axillary skin thickening and mild subcutaneous inflammatory stranding could be due to cellulitis ; correlate with direct inspection." Exam from yesterday is essentially unchanged other than new skin lesion on the right rinaldi. Lesion on left rinaldi is more erythematous and pronounced today. Appears to be possibly erythema nodosum. Etiology is still unclear at this time. CT findings would suggest possible cellulitis of axillae rather than Lymphadenopathy. However she dose not appear to be improving on antibiotics thus far. With oral ulceration, what appears to be erythema nodosum, arthralgias, and elevated inflammatory markers would consider possibly an inflammatory condition. Viral causes are also being considered and viral tests for Parvo, EBV, CMV, coxscakie are pending. May also consider more than one underlying processes to explain her symptoms. Recommendations: Discontinue Zosyn. Continue Vancomycin. Can Switch to PO BActrim on discharge. We will follow up with cultures and viral panels. Continue to monitor for drug toxicities. continue to monitor renal function. Qualifiers: Sepsis type: sepsis due to unspecified organism Qualified Code(s): A41.9 - Sepsis, unspecified organism (2) Axillary lymphadenopathy Current Visit: Yes Status: Acute (3) Ulceration, oral mucosa Current Visit: Yes Status: Acute Etiology unclear: possibly viral vs. oral contraceptive -induced. We will follow up with viral panels. Patient still symptomatic. Symptoms are being managed by primary team. (4) History of recent childbirth Current Visit: Yes Status: Acute Patient had 3 months ago at [place] without complications. She was started on oral contraceptives 4 weeks prior to the onset of symptoms. - Subjective Interval history: No major events overnight. This AM patient states she is feeling about the same. She states she was unable to eat breakfast this morning due to the pain in her mouth. She also has continued pain in her ankles and knees. She states that this is associated with her fever. She states now she is also hurting all over. She states her axillae are still painful and has not had any improvement from yesterdaty. She states that she also began her period this AM. She denies any adverse reaction to the antibiotics. Specifically she denies pruritis, and diarrhea. She has no further complaints or concerns this AM. Infect Dis PN-Objective Data - Labs CBC & Chem 7: 03/15/17 04:09 03/15/17 04:09 Labs: Laboratory Results - last 24 hr 03/10/17 03/11/17 03/11/17 16:37 08:38 08:38 WBC RBC Hgb Hct MCV MCH MCHC RDW Plt Count MPV Immature Gran % Seg Neutrophils % Lymphocytes % Monocytes % Eosinophils % Basophils % Neutrophils # Lymphocytes # Monocytes # Eosinophils # Basophils # Immature Plt Fraction Sodium Potassium Chloride Carbon Dioxide BUN Creatinine Est GFR ( Amer) Est GFR (Non-Af Amer) BUN/Creatinine Ratio Glucose Calculated Osmolality Calcium Total Bilirubin AST ALT Alkaline Phosphatase Serum Total Protein Albumin Globulin Albumin/Globulin Ratio Vancomycin Trough Random Vancomycin SOLEDAD Screen DETECTED A SOLEDAD Titer <1:40 Acetylchol Rcpt Block Ab 20 Acetylchol Rcpt Bind Ab 0.0 CMV Specimen Source SERUM CMV DNA Qual PCR NOT DETECTED Specimen Rejected 03/11/17 03/14/17 03/14/17 Unknown 11:27 11:57 WBC RBC Hgb Hct MCV MCH MCHC RDW Plt Count MPV Immature Gran % Seg Neutrophils % Lymphocytes % Monocytes % Eosinophils % Basophils % Neutrophils # Lymphocytes # Monocytes # Eosinophils # Basophils # Immature Plt Fraction Sodium 142 Potassium 3.9 Chloride 112 H Carbon Dioxide 24 BUN 3 L Creatinine 0.80 Est GFR ( Amer) > 60 Est GFR (Non-Af Amer) > 60 BUN/Creatinine Ratio 4 L Glucose 99 Calculated Osmolality 291 Calcium 9.5 Total Bilirubin 0.7 AST 13 ALT 16 Alkaline Phosphatase 92 Serum Total Protein 7.2 D Albumin 3.2 L D Globulin 4.0 H Albumin/Globulin Ratio 0.8 L Vancomycin Trough 22.5 H* Random Vancomycin SOLEDAD Screen SOLEDAD Titer Acetylchol Rcpt Block Ab Acetylchol Rcpt Bind Ab CMV Specimen Source R AXILLA TISSUE CMV DNA Qual PCR NOT DETECTED Specimen Rejected 03/14/17 03/14/17 03/14/17 11:57 13:04 18:01 WBC 7.6 RBC 4.18 Hgb 11.9 D Hct 35.7 MCV 85.4 MCH 28.5 MCHC 33.3 RDW 13.4 Plt Count 294 D MPV 11.0 Immature Gran % 0.7 Seg Neutrophils % 74.2 Lymphocytes % 14.0 Monocytes % 8.5 Eosinophils % 2.2 Basophils % 0.4 Neutrophils # 5.7 Lymphocytes # 1.1 Monocytes # 0.7 Eosinophils # 0.2 Basophils # 0.0 Immature Plt Fraction 4.2 Sodium Potassium Chloride Carbon Dioxide BUN Creatinine Est GFR ( Amer) Est GFR (Non-Af Amer) BUN/Creatinine Ratio Glucose Calculated Osmolality Calcium Total Bilirubin AST ALT Alkaline Phosphatase Serum Total Protein Albumin Globulin Albumin/Globulin Ratio Vancomycin Trough Random Vancomycin 13.5 SOLEDAD Screen SOLEDAD Titer Acetylchol Rcpt Block Ab Acetylchol Rcpt Bind Ab CMV Specimen Source CMV DNA Qual PCR Specimen Rejected Miscellaneous 03/15/17 03/15/17 03/15/17 04:09 04:09 04:09 WBC 6.1 RBC 3.85 Hgb 10.9 L Hct 32.5 L MCV 84.4 MCH 28.3 MCHC 33.5 RDW 13.3 Plt Count 273 MPV 10.2 Immature Gran % 0.8 Seg Neutrophils % 59.5 Lymphocytes % 24.2 Monocytes % 11.4 Eosinophils % 3.6 Basophils % 0.5 Neutrophils # 3.6 Lymphocytes # 1.5 Monocytes # 0.7 Eosinophils # 0.2 Basophils # 0.0 Immature Plt Fraction Sodium 142 Potassium 3.5 Chloride 112 H Carbon Dioxide 21 BUN 5 L Creatinine 0.88 Est GFR ( Amer) > 60 Est GFR (Non-Af Amer) > 60 BUN/Creatinine Ratio 6 Glucose 100 H Calculated Osmolality 291 Calcium 9.0 Total Bilirubin 0.6 AST 12 ALT 14 Alkaline Phosphatase 75 Serum Total Protein 6.5 Albumin 3.0 L Globulin 3.5 Albumin/Globulin Ratio 0.9 L Vancomycin Trough Random Vancomycin 17.8 SOLEDAD Screen SOLEDAD Titer Acetylchol Rcpt Block Ab Acetylchol Rcpt Bind Ab CMV Specimen Source CMV DNA Qual PCR Specimen Rejected Cultures: Cultures 03/11/17 Unknown Surgical Biopsy Culture - Final Right Axilla Staphylococcus lugdunensis 03/10/17 16:00 Anaerobic Culture - Final Face No anaerobes were recovered. 03/10/17 16:00 Anaerobic Culture - Preliminary Groin At this time, no anaerobic growth is present. The culture will be finalized after 5 days of incubation. 03/10/17 16:00 Wound Culture - Final Mouth No pathogens isolated. 03/10/17 16:00 Wound Culture - Final Groin No pathogens isolated. 03/11/17 Unknown Acid Fast Stain - Final Right Axilla 03/10/17 15:00 Urine Culture - Final Urine,Clean Catch No growth. Serology 03/11/17 03/11/17 03/11/17 Range/Units Unknown 13:54 08:38 Urine Color (Yellow) Urine Clarity (Clear) Urine pH (5.0-8.0) pH Units Ur Specific Bison (1.010-1.025) Urine Protein (Neg-Trace) mg/dL Urine Glucose (UA) (Normal) mg/dL Urine Ketones (Negative) mg/dL Urine Blood (Negative) Urine Nitrite (Negative) Urine Bilirubin (Negative) Urine Urobilinogen (Normal) mg/dL Ur Leukocyte Esterase (Negative) Urine Microscopic RBC (0-3) per hpf Urine Microscopic WBC (0-3) per hpf Ur Squamous Epith Cells (None-Few) per lpf Urine Bacteria (None-Few) per hpf Hyaline Casts (None-Few) per lpf Ur Culture Indicated? (NO) Urine Test (Negative) T.pallidum Ab Interpret (NEGATIVE) Chlamy pneumoniae PCR Not Detected (Not Detect) Adenovirus (PCR) Not Detected (Not Detect) B. pertussis DNA (PCR) Not Detected (Not Detect) Coronavirus OC43 (PCR) Not Detected (Not Detect) Coronavirus HKU1 (PCR) Not Detected (Not Detect) Coronavirus 229E (PCR) Not Detected (Not Detect) Coronavirus NL63 (PCR) Not Detected (Not Detect) CMV Specimen Source R AXILLA TISSUE SERUM CMV DNA Qual PCR NOT DETECTED NOT DETECTED EBV Capsid Ag IgM Ab (Negative) HIV Ag/Ab Combo Qual (Nonreactive) Human Metapneumovir PCR Not Detected (Not Detect) Infectious [place] Assay (Negative) Influenza A (H1) PCR Not Detected (Not Detect) Influ A (H1N1/09) PCR Not Detected (Not Detect) Influenza A (H3) PCR Not Detected (Not Detect) Influenza A Untype (PCR) Not Detected (Not Detect) Influenza Type B (PCR) Not Detected (Not Detect) M.pneumoniae DNA (PCR) Not Detected (Not Detect) Parainfluenza 1 (PCR) Not Detected (Not Detect) Parainfluenza 2 (PCR) Not Detected (Not Detect) Parainfluenza 3 (PCR) Not Detected (Not Detect) Parainfluenza 4 (PCR) Not Detected (Not Detect) Parvovirus B19 IgG Ab (<=0.89) IV Parvovirus B19 IgM Ab (<=0.89) IV RSV (PCR) Not Detected (Not Detect) Entero/Rhino (PCR) Not Detected (Not Detect) 03/10/17 03/10/17 03/10/17 Range/Units 16:39 16:39 16:39 Urine Color (Yellow) Urine Clarity (Clear) Urine pH (5.0-8.0) pH Units Ur Specific Bison (1.010-1.025) Urine Protein (Neg-Trace) mg/dL Urine Glucose (UA) (Normal) mg/dL Urine Ketones (Negative) mg/dL Urine Blood (Negative) Urine Nitrite (Negative) Urine Bilirubin (Negative) Urine Urobilinogen (Normal) mg/dL Ur Leukocyte Esterase (Negative) Urine Microscopic RBC (0-3) per hpf Urine Microscopic WBC (0-3) per hpf Ur Squamous Epith Cells (None-Few) per lpf Urine Bacteria (None-Few) per hpf Hyaline Casts (None-Few) per lpf Ur Culture Indicated? (NO) Urine Test (Negative) T.pallidum Ab Interpret (NEGATIVE) Chlamy pneumoniae PCR (Not Detect) Adenovirus (PCR) (Not Detect) B. pertussis DNA (PCR) (Not Detect) Coronavirus OC43 (PCR) (Not Detect) Coronavirus HKU1 (PCR) (Not Detect) Coronavirus 229E (PCR) (Not Detect) Coronavirus NL63 (PCR) (Not Detect) CMV Specimen Source CMV DNA Qual PCR EBV Capsid Ag IgM Ab Negative (Negative) HIV Ag/Ab Combo Qual (Nonreactive) Human Metapneumovir PCR (Not Detect) Infectious [place] Assay Negative (Negative) Influenza A (H1) PCR (Not Detect) Influ A (H1N1/09) PCR (Not Detect) Influenza A (H3) PCR (Not Detect) Influenza A Untype (PCR) (Not Detect) Influenza Type B (PCR) (Not Detect) M.pneumoniae DNA (PCR) (Not Detect) Parainfluenza 1 (PCR) (Not Detect) Parainfluenza 2 (PCR) (Not Detect) Parainfluenza 3 (PCR) (Not Detect) Parainfluenza 4 (PCR) (Not Detect) Parvovirus B19 IgG Ab 4.04 H (<=0.89) IV Parvovirus B19 IgM Ab 0.14 (<=0.89) IV RSV (PCR) (Not Detect) Entero/Rhino (PCR) (Not Detect) 03/10/17 03/10/17 03/10/17 Range/Units 16:37 16:37 15:00 Urine Color Dark Yellow (Yellow) Urine Clarity Cloudy A (Clear) Urine pH 6.0 (5.0-8.0) pH Units Ur Specific Bison > 1.030 H (1.010-1.025) Urine Protein 30 H (Neg-Trace) mg/dL Urine Glucose (UA) Normal (Normal) mg/dL Urine Ketones 80 H (Negative) mg/dL Urine Blood Negative (Negative) Urine Nitrite Negative (Negative) Urine Bilirubin Small H (Negative) Urine Urobilinogen Normal (Normal) mg/dL Ur Leukocyte Esterase Small H (Negative) Urine Microscopic RBC 5-15 H (0-3) per hpf Urine Microscopic WBC 15-30 H (0-3) per hpf Ur Squamous Epith Cells Many H (None-Few) per lpf Urine Bacteria None Seen (None-Few) per hpf Hyaline Casts Few (None-Few) per lpf Ur Culture Indicated? YES A (NO) Urine Test (Negative) T.pallidum Ab Interpret NEGATIVE (NEGATIVE) Chlamy pneumoniae PCR (Not Detect) Adenovirus (PCR) (Not Detect) B. pertussis DNA (PCR) (Not Detect) Coronavirus OC43 (PCR) (Not Detect) Coronavirus HKU1 (PCR) (Not Detect) Coronavirus 229E (PCR) (Not Detect) Coronavirus NL63 (PCR) (Not Detect) CMV Specimen Source CMV DNA Qual PCR EBV Capsid Ag IgM Ab (Negative) HIV Ag/Ab Combo Qual Nonreactive (Nonreactive) Human Metapneumovir PCR (Not Detect) Infectious [place] Assay (Negative) Influenza A (H1) PCR (Not Detect) Influ A (H1N1/09) PCR (Not Detect) Influenza A (H3) PCR (Not Detect) Influenza A Untype (PCR) (Not Detect) Influenza Type B (PCR) (Not Detect) M.pneumoniae DNA (PCR) (Not Detect) Parainfluenza 1 (PCR) (Not Detect) Parainfluenza 2 (PCR) (Not Detect) Parainfluenza 3 (PCR) (Not Detect) Parainfluenza 4 (PCR) (Not Detect) Parvovirus B19 IgG Ab (<=0.89) IV Parvovirus B19 IgM Ab (<=0.89) IV RSV (PCR) (Not Detect) Entero/Rhino (PCR) (Not Detect) 03/10/17 Range/Units 15:00 Urine Color (Yellow) Urine Clarity (Clear) Urine pH (5.0-8.0) pH Units Ur Specific Bison (1.010-1.025) Urine Protein (Neg-Trace) mg/dL Urine Glucose (UA) (Normal) mg/dL Urine Ketones (Negative) mg/dL Urine Blood (Negative) Urine Nitrite (Negative) Urine Bilirubin (Negative) Urine Urobilinogen (Normal) mg/dL Ur Leukocyte Esterase (Negative) Urine Microscopic RBC (0-3) per hpf Urine Microscopic WBC (0-3) per hpf Ur Squamous Epith Cells (None-Few) per lpf Urine Bacteria (None-Few) per hpf Hyaline Casts (None-Few) per lpf Ur Culture Indicated? (NO) Urine Test Negative (Negative) T.pallidum Ab Interpret (NEGATIVE) Chlamy pneumoniae PCR (Not Detect) Adenovirus (PCR) (Not Detect) B. pertussis DNA (PCR) (Not Detect) Coronavirus OC43 (PCR) (Not Detect) Coronavirus HKU1 (PCR) (Not Detect) Coronavirus 229E (PCR) (Not Detect) Coronavirus NL63 (PCR) (Not Detect) CMV Specimen Source CMV DNA Qual PCR EBV Capsid Ag IgM Ab (Negative) HIV Ag/Ab Combo Qual (Nonreactive) Human Metapneumovir PCR (Not Detect) Infectious [place] Assay (Negative) Influenza A (H1) PCR (Not Detect) Influ A (H1N1/09) PCR (Not Detect) Influenza A (H3) PCR (Not Detect) Influenza A Untype (PCR) (Not Detect) Influenza Type B (PCR) (Not Detect) M.pneumoniae DNA (PCR) (Not Detect) Parainfluenza 1 (PCR) (Not Detect) Parainfluenza 2 (PCR) (Not Detect) Parainfluenza 3 (PCR) (Not Detect) Parainfluenza 4 (PCR) (Not Detect) Parvovirus B19 IgG Ab (<=0.89) IV Parvovirus B19 IgM Ab (<=0.89) IV RSV (PCR) (Not Detect) Entero/Rhino (PCR) (Not Detect) Exam - Constitutional Vitals: Temp Pulse Resp BP Pulse Ox 98.2 F 79 18 125/89 96 03/15/17 07:45 03/15/17 07:45 03/15/17 07:45 03/15/17 07:45 03/15/17 07:45 Consult Discharge Plan - Plan Referrals: Dinorah Mesa MD [Primary Care Provider] - 03/22/17 10:15 am Alphonso Mitchell DO [Partnered Physician] - 03/26/17 3:00 pm - Attending Attestation I examined this patient and my medical decision-making was reviewed with the Resident Physician. I agree with the documented findings, disposition and treatment plan as described except to the extent set forth below. I had a chance to speak with dermatology, biopsy results are not back. 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 Await final biopsy results to finalize. Might need to consider giving steroids. I will stop the vancomycin and the Zosyn start the patient on oral Bactrim.
[2017-03-15 12:01] VITALS: BP 131/83
--- NOTE | 2017-03-15 14:54 | Discharge Summary ---
<Zachary Hassan P - Last Filed: 03/15/17 17:49> Date of Encounter: 03/15/17 - Discharge Diagnosis (1) Sepsis Status: Resolved Qualifiers: Sepsis type: sepsis due to unspecified organism Qualified Code(s): A41.9 - Sepsis, unspecified organism (2) Mouth sores Status: Acute (3) Folliculitis Status: Acute - Discharge Medications Prescriptions: cephALEXin [Keflex] 500 mg PO QID #20 capsule Home Medications: BuPROPion XL (24 HR) [Wellbutrin Xl] 150 mg PO DAILY 02/09/16 [History] Rizatriptan Benzoate [Maxalt] 10 mg PO DAILY PRN 10/09/16 [History] Ethinyl Estradiol/Drospirenone [Debbie 28 Tablet] 1 tab PO DAILY 03/10/17 [History] Topiramate [Topamax] 50 mg PO DAILY 03/10/17 [History] Acetaminophen [Tylenol] 650 mg PO Q6HR PRN tab 03/15/17 [Rx] cephALEXin [Keflex] 500 mg PO QID #20 capsule 03/15/17 [Rx] Allergies/Adverse Reactions: Allergies No Known Allergies Allergy (Verified 03/10/17 08:05) Date of admission: 03/10/17 12:45 Primary care physician: Dinorah Mesa Consults: 03/10/17 12:52 Consult to Infectious Diseases [CONS] Routine Consulting Provider: Infectious Disease [place] Reason for Consult: Patient has multiple sores that begin in the left axilla and increased to right axilla and groin. Patient also has multiple mouth sores. Call Completed: Yes 03/10/17 15:37 Consult to Dermatology [CONS] Routine Consulting Provider: Dermatology [place] Reason for Consult: Patient with oral and genital lesions. Also bilateral axillary lymphadenopathy. concern for Bechets possibly hand foot and mouth. Would like your evaluation and recommendations. Call Completed: No 03/14/17 16:06 Consult to SCALEHOUSE ATTENDANT [CONS] Routine Consulting Provider: SENIOR SALES CONSULTANT Myra Reason for Consult: Ulcer in vaginal area Call Completed: Yes 03/15/17 15:03 Consult to Physician [CONS] Routine Consulting Provider: Alphonso Mitchell Reason for Consult: Lymphadenopathy Time Notified: 08:30 Call Completed: Yes - Patient Status Disposition: Home, Self-Care Condition: Good - Discharge Instructions Follow Up With: Laxmi Ryan MD [Non-Partnered Physician] - (Patient has a follow up already made and will be seeing Dr. Ryan next week. Thank you) Dinorah Mesa MD [Primary Care Provider] - 03/22/17 10:15 am Melanie Weller MD [Partnered Physician] - (Dr. Weller has made patient aware that the office will call her tomorrow and let her know the date and time of the hospital f/u. Thank you.) Alphonso Mitchell DO [Partnered Physician] - 03/26/17 3:00 pm Forms: Inpatient Work/School Release Additional Instructions: Continue taking Keflex for 5 days Scheduled follow-up appointment with PCP, upper leather cutter, SLEEP LAB TECHNOLOGIST, and head golf coach. Hospital course: Ms. Broussard is a 26 year old female - Time Spent with Patient Total time spent providing and/or coordinating discharge services: - Constitutional Vitals: Temp Pulse Resp BP Pulse Ox 98.3 F 59 18 131/83 99 03/15/17 11:46 03/15/17 11:46 03/15/17 11:46 03/15/17 11:46 03/15/17 11:46 - Attending Attestation I examined this patient and my medical decision-making was reviewed with the Resident Physician. I agree with the documented findings, disposition and treatment plan as described except to the extent set forth below. <Ten Martinez - Last Filed: 03/16/17 18:35> Date of Encounter: 03/15/17 Time of Encounter: 14:50 - Discharge Diagnosis (1) Sepsis Priority: Primary Status: Resolved Qualifiers: Sepsis type: sepsis due to unspecified organism Qualified Code(s): A41.9 - Sepsis, unspecified organism (2) Folliculitis Priority: Primary Status: Acute Comments: Case discussed with ID, Dermatology, and [facility] Pathologist, Dr. Colin. Preliminary biopsy specimen reveals pustular folliculitis with neutrophils seen in the sweat glands/ducts suggestive of hidradenitis suppurativa. Gram stain results pending. Patient completed 5 days of vancomycin and Zosyn. Will continue 5 day course of Keflex. Recommend outpatient follow-up with PCP, dermatology, gynecology, and rheumatology. (3) Mouth sores Priority: Primary Status: Acute (4) Axillary lymphadenopathy Priority: Primary Status: Acute (5) DVT prophylaxis Priority: Primary Status: Acute Comments: Patient seen and examined, plan discussed with and agreed upon with Dr. Hassan Procedures/tests Complete & Pending: Procedures Performed prior 72 hours Category Date Time Status CT abd pelvis w iv and oral [CT] Stat Cat Scan 03/12/17 14:45 Completed Date of admission: 03/10/17 12:45 Primary care physician: Dinorah Mesa Consults: 03/10/17 12:52 Consult to Infectious Diseases [CONS] Routine Consulting Provider: Infectious Disease [place] Reason for Consult: Patient has multiple sores that begin in the left axilla and increased to right axilla and groin. Patient also has multiple mouth sores. Call Completed: Yes 03/10/17 15:37 Consult to Dermatology [CONS] Routine Consulting Provider: Dermatology [facility] Reason for Consult: Patient with oral and genital lesions. Also bilateral axillary lymphadenopathy. concern for Bechets possibly hand foot and mouth. Would like your evaluation and recommendations. Call Completed: No 03/14/17 16:06 Consult to SCALEHOUSE ATTENDANT [CONS] Routine Consulting Provider: SENIOR SALES CONSULTANT Myra Reason for Consult: Ulcer in vaginal area Call Completed: Yes Discharging clinician: Zachary Hassan Anticipated date of discharge: 03/15/17 - Patient Status Functional capacity at discharge: independent ambulation Overall status at discharge: patient is progressing back to baseline - Diet and Activity Activity: increase activity as tolerated Diet: regular diet Hospital course: Ms. Broussard is a 26 year old female with a past medical history of Chlamydia, migraines, and recent childbirth 3 months ago that presents with fever and painful sores that began in the left axilla area and increased to multiple sores in bilateral axilla as well as the groin. Patient also reports sores inside her mouth in the lower lip, under the right back of her tongue, and her throat which make swallowing extremely difficult. Patient reports nausea, chills , and fatigue as well. She denies any use of new medications, IV drug use, recent travel, tick bites, or history of immunosuppression. Patient met sepsis criteria based on WBC of 13.8, HR of 124, and temperature of 101.2 rectally. Hospital course consisted of consults to dermatology, infectious disease, and rheumatology, and gynecology as well as IV vancomycin and IV Zosyn, blood cultures x2, wound cultures (from mouth, neck, and groin), urine culture, and Tylenol and Motrin for fever control. Test results revealed CRP: 170, ESR 54. RF, CCP, SOLEDAD titer negative. Infectious serology unremarkable. Tissue culture from right axilla grew staph lugdunensis, acid fast stain negative, Wound culture from mouth: no pathogens were isolated. anaerobic culture from groin: culture present, no anaerobic growth present. Blood cultures were negative. Preliminary lymph node biopsy revealed pustular folliculitis with neutrophils seen in the sweat glands/ducts suggestive of hidradenitis suppurativa. Gram stain results pending. Patient completed 5 days of vancomycin and Zosyn. Continue 5 day course of Keflex. Recommended outpatient follow-up with PCP, dermatology, gynecology, and rheumatology upon discharge. - Time Spent with Patient Total time spent providing and/or coordinating discharge services: - Constitutional Vitals: Temp Pulse Resp BP Pulse Ox 98.3 F 59 18 131/83 99 03/15/17 11:46 03/15/17 11:46 03/15/17 11:46 03/15/17 11:46 03/15/17 11:46 General appearance: Present: cooperative, A&O X 3, pleasant, no acute distress, answers questions appropriately. Absent: obese - Head Head exam: Present: atraumatic, normocephalic - Eye Eye exam: Present: PERRL, conjuntiva pink, sclera anicteric Pupils: Present: PERRL - ENT ENT exam: Present: mucous membranes moist. Absent: normal exam Additional comments: Multiple small 5 mm aphthous ulcers in oral mucosa, no cervical lymphadenopathy - Neck Neck exam general surgery: Present: supple, trachea midline. Absent: lymphadenopathy - Respiratory Respiratory exam: Present: CTAB. Absent: accessory muscle use, rales, rhonchi, wheezes - Cardiovascular Cardiovascular exam: Present: RRR, +S1, +S2. Absent: diastolic murmur, gallop, rubs, systolic murmur - GI/Abdominal GI/Abdominal exam: Present: normal bowel sounds, soft, no peritoneal signs. Absent: distended, tenderness - Extremities Exam Extremities exam: Present: warm, radial pulses palpable and symetrical. Absent : calf tenderness, cyanotic, pedal edema - Neurological Exam Neurological exam: Present: CN II-XII intact, oriented X3, no focal deficits. Absent: pronater drift, facial droop, speech deficit - Skin Skin exam: Present: dry, erythema, warm Additional comments: Small 2 x 3 cm erythematous non-draining nodules in bilateral axilla. 1cm erythematous patches bilateral anterior shins, palms and soles are clear
[2017-03-15] MEDS ORDERED: Aminoglycoside Consult 1 EACH MC ONE (17:24)
[2017-03-18 08:09] LABS: HSV 1 Glycoprotein G IgG 0.09 IV (<=0.90); HSV 2 Glycoprotein G IgG 0.11 IV (<=0.90)
== END 2017-03-15 17:25 | disposition home or self-care (01) | DRG 872 ==
LOC: EMEROO 07:58 → 3ANU 12:45
PROVIDERS: ADMIT Internal Medicine; ATTEND Internal Medicine